=== PATIENT | female | born 1960 | race Caucasian/White ===

== ENCOUNTER → 2020-12-22 12:20 | Outpatient (CLI) | payer OTHER, MEDICAID, SELFPAY ==
--- NOTE | 2020-12-22 12:31 | DI.CT.S_ITS ---
PROCEDURE: CT LUMBAR SPINE WO CON INDICATIONS: Low back pain, unspecified TECHNIQUE: Noncontrast 3 mm thick sections acquired from the T12 level to the sacrum. Sagittal and coronal reformats were constructed. For radiation dose reduction, the following was used: automated exposure control. COMPARISON: [facility], MR, MR LUMBAR SPINE WITHOUT CONTRAST, 10/03/2020, 13:34. FINDINGS: Image quality: Excellent. Bones: No acute fracture. Multilevel degenerative endplate sclerosis and spurring. Diffuse facet arthropathy. Diffuse osteopenia. Severe diffuse narrowing of the lumbar disc spaces and multilevel chronic degenerative vacuum disc phenomenon. Grade 1 anterolisthesis of L4 on L5. T12-L1: Mild canal narrowing. No definite foraminal stenosis. L1-L2: Moderate to severe bony canal stenosis. Severe right foraminal stenosis with nerve root compression. Mild left foraminal narrowing.. L2-L3: Moderate bony canal stenosis. Mild left and moderate right foraminal narrowing. L3-L4: Mild canal narrowing. Mild left and no definite right bony foraminal stenosis. Borderline nerve root compression seen on the left. L4-L5: Severe bony canal stenosis. Moderate left and mild right bony foraminal narrowing. Borderline nerve root compression on the left. L5-S1: Minimal bony canal stenosis. Severe left bony foraminal narrowing with nerve root compression. Moderate right bony foraminal stenosis with borderline nerve root compression in the cephalocaudal dimension. Soft tissues: No retroperitoneal masses or hematomas. Visualized aorta is normal in caliber. Scattered atheromatous calcifications in the aorta. IMPRESSION: Multilevel lumbar spondylosis and facet arthropathy with grade 1 anterolisthesis of L4 on L5. Severe bony canal stenosis at L4-L5 and L1-L2. Numerous diffuse bilateral bony foraminal stenoses as detailed by spinal level. Dictated by: Martin Daugherty M.D. on 12/26/2020 at 8:16 Approved by: Martin Daugherty M.D. on 12/26/2020 at 8:38
== END ==
PROVIDERS: PCP Family Medicine; Referring Provider Orthopaedic Surgery Orthopaedic Surgery of the Spine; Visit Provider Orthopaedic Surgery Orthopaedic Surgery of the Spine
DX: M47.816 Spondylosis without myelopathy or radiculopathy, lumbar region (principal); M43.16 Spondylolisthesis, lumbar region; M48.061 Spinal stenosis, lumbar region without neurogenic claudication; M48.07 Spinal stenosis, lumbosacral region
CPT/HCPCS: 72131

== ENCOUNTER → 2021-01-02 15:22 | Outpatient (CLI) | payer OTHER, MEDICAID, SELFPAY | PROVIDERS: PCP Family Medicine; Referring Provider Orthopaedic Surgery Orthopaedic Surgery of the Spine; Visit Provider Orthopaedic Surgery Orthopaedic Surgery of the Spine | DX: Z01.818 Encounter for other preprocedural examination (principal) | CPT/HCPCS: 93005 ==

== ENCOUNTER → 2021-01-08 13:03 | Outpatient (CLI) | payer OTHER, MEDICAID, SELFPAY ==
[2021-01-08 14:55] LABS: COVID19 -Nasal RAPID Negative (Negative)
== END ==
PROVIDERS: PCP Family Medicine; Referring Provider Physician Assistant; Visit Provider Physician Assistant
DX: Z20.822 Contact with and (suspected) exposure to COVID-19 (principal)
CPT/HCPCS: 87635; C9803

== ENCOUNTER 2021-01-10 10:57 | Inpatient (IN) | payer OTHER, MEDICAID, SELFPAY ==
[2021-01-08 07:47] VITALS: BMI 34.1
[2021-01-10] VITALS (14 sets, daily range): BP systolic 114–170; BP diastolic 71–102; PULSE 84–107; RESP 10–18; TEMP 35.9–37.4; O2SAT 91–100; BMI 34.1
--- NOTE | 2021-01-10 | DI.RAD.S_ITS ---
PROCEDURE: XR LUMBAR SPINE 2-3V INDICATIONS: TLIF TECHNIQUE: 2 views of the lumbar spine were acquired. COMPARISON: [facility], CT, CT LUMBAR SPINE WO CON, 12/22/2020, 12:41. FINDINGS: 2 submitted intraoperative images demonstrates posterior/interbody fusion at the presumed L3-L4 and L4-L5 levels with hardware and disc spacers in expected position. There is trace retrolisthesis at the L3-L4 level and trace spondylolisthesis at the L4-L5 level. IMPRESSION: Limited exam demonstrating posterior/interbody fusion at the presumed L3-L4 and L4-L5 levels. Dictated by: Thor Nelson [facility] Interpreted: Steve West MD on 01/10/2021 at 17:09 Transcribed by: PAULETTE on 01/10/2021 at 17:10 Approved by: Steve West M.D. on 01/10/2021 at 19:36
[2021-01-10] MEDS: LACTATED RINGERS 1,000 ML 42 ML IV ×2 (11:54→14:53)
--- NOTE | 2021-01-10 12:14 | SUR.PREOP ---
Preop Dr Neville here and confirmed procedure with patient. Pt Discussed with Md pain now starting on RT side, but confirmed left side still worse. Dr Neville informed patient nicotine patch to be ordered for post op. Patient resting & Awaiting to speak w/rest of OR staff.
--- NOTE | 2021-01-10 12:33 | PM.PREOP ---
Pre-operative Note COVID-19 COVID-19 status: Negative Result date/Date tested (Pos, Neg/Pending): 01/08/21 Interval Note History & Physical reviewed/Exam performed by Physician: Yes Changes to H&P: No
[2021-01-10] MEDS: CEFAZOLIN 2 GM/20 ML SYRINGE IV ×2 (13:10→20:15)
[2021-01-10] MEDS: BUPIVACAINE LIPOSOME 266 MG/20 ML VIAL INJ (13:15)
--- NOTE | 2021-01-10 13:27 | SUR.OPER ---
Prone on spine table, head in foam head support, padded chest and pelvic supports, gel pad at knees, lower legs supported by pillows; nipples, genitalia and toes free of pressure, arms secured on foam padded arm boards at <90 degrees abduction. Tape over blanket at thigh secured to table.
[2021-01-10] MEDS: BUPIVACAINE 0.25% (PF) 30 ML, EPINEPHrine 0.3 MG INJ (13:30)
[2021-01-10] MEDS: ACETAMINOPHEN IV 1,000 MG/100 ML VIAL 400 MG IV (15:30)
--- NOTE | 2021-01-10 17:10 | PM.OP.1 ---
Operative Date/Time/Diagnoses Date of procedure: 01/10/21 Time of procedure: 13:00 Pre-op diagnosis: 1. L3-4, L4-5 spondylolisthesis 2. Lumbar spinal stenosis with neurogenic claudication Post-op diagnosis: same Procedure & Clinicians Procedure: 1. L3-4, L4-5 Postero-lateral and posterior interbody fusion 2. L3-4, L4-5 interbody cage placement. 3. L3-4, L4-5 decompressive laminectomy with bilateral facetecomies 4. L3-4, L4-5 Posterior segmental instrumentation 5. [place] of bone marrow from iliac crest 6. Utilization of microsurgical technique and operating microscope 7. Robotic navigation assisted surgery Same procedure as scheduled: Yes Indications: Patient has been having chronic back pain and worsening lumbar radiculopathy. Patient failed multiple conservative management with worsening pain weakness and numbness in her lower extremity. Patient has been having difficulty performing activity of daily living. After discussing risks benefits of treatment options, patient elected proceed with surgery. Surgeon: Huber Neville Sound Effects Supervisor: Viraj Rouse Click Yes if Unassisted: No Anesthesia Type: General Operative Notes Closure Type: primary Specimen(s): none sent Prosthetic devices, grafts, tissues, transplants, or devices: Globus CREO MIS screws, Rise cages Applied: catheter Estimated Blood Loss (mL): 150 Blood products transfused: none Procedure in detail: Patient was seen in the preoperative area. Risks and benefits of the surgery was discussed with the patient. Informed consent was obtained from the patient and placed in the chart. Surgical site was marked. Patient was taken to the operative room. General anesthesia was administered. Prophylactic antibiotic was given to the patient less than 30 min before the incision was made. Patient was placed into a prone position on the Alex table. Patient's back was then prepped and draped in the sterile fashion. Time-out was performed at this time. After patient was prepped and draped, patient's PSIS was palpated and marked bilaterally. Small 1 cm incision was made over the PSIS for placement of the reference probes. Two trocar was placed into the PSIS 1 on each side. The reference probe was attached to the trocar of the reference apparatus. At this time the C-arm imaging was used to confirm AP and lateral of L3, L4-L5 vertebrae and merged the C-arm imaging using the [employer] robotic navigation system with the CT of the lumbar spine. After successful merging was completed and confirmed, skin marker was used to anuja out the skin incision using the Dress Code robotic arm. Bilateral incision was made at this time. Pre templated trajectory was used and guided using the [employer] robotic navigation system for bilateral L3 L4, L5 pedicle screw placement. This was done by using the robotic arm to guide the high-speed bur to make a cortical entry point. Next a drill was placed also using the robotic arm and guided using the navigation system drilling partially through bilateral L3, L4, L5 pedicles. Next L3, L4, L5 pedicle screws it was pre templated and measured was placed onto the power driver recruiter and inserted into the pedicles bilaterally. After all 6 screws were placed C-arm imaging was taken of both AP and lateral to confirm the placement. Excellent placement of the screws were confirmed and a matched precisely with the pre planned screw placement using the navigation system. MARs retractor was inserted using [employer] guidence. Globus MARS retractors was placed inside the incision and docked onto the L3, L4 lamina. Using microsurgical technique and operating microscope, a L4, L5 laminectomy and L3-4, L4-5 facetectomy was performed using a [place] rongeur. Patient was found have severe lateral recess and neural foramen stenosis which was fully decompressed after the laminectomy facetectomy. More than 75% of the facets were removed during the process of decompression rendering L3-4, L4-5 level grossly unstable and required a fusion procedure at the same time. The disc space at L3-4, L4-5 was identified, and a total diskectomy was performed at L3-4, L4-5 level. The endplates were decorticated using a rasp and shaver. The total diskectomy and decortication was performed at L3-4, L4-5 level in order to to accomplish a L3-4, L4-5 fusion. The local bone from the laminectomy and facetectomy was saved for local bone grafting. After the total diskectomy and decortication was completed, Trifecta bone graft material was combined with local bone that was harvested earlier. At this time, a separate skin is incision was made over the iliac crest. A Jamshidi needle was inserted into the iliac crest through a separate skin incision. 5 cc of bone marrow aspiration was obtained through the separate skin incision using a Jamshidi needle from the iliac crest. The bone marrow aspiration was combined with local bone and the Trifecta bone grafting material. The bone grafting material was placed into the L3-4, L4-5 interbody space along with expandable cages. One cage each was inserted into the L3-4 L4-5 interbody space along with bone graft material. The cage was expanded to its maximum height using the torque limiting screwdriver. The disc preparation as well as the cage insertion were also performed under navigation guidance. After the cage was placed, AP and lateral C-arm imaging was taken to confirm placement of the cage and excellent position was confirmed. Globus MARS retractor was inserted and docked onto the L3-4, L4-5 posterolateral gutter on the right side. Using the power drill, posterior-lateral decortication was performed at L3-4, L4-5 level until bleeding cortical bone was identified. The remaining bone grafting material was placed into the L3-4, L4-5 posterior lateral gutter he order to accomplish posterolateral fusion at the L3-4, L4-5 level. At this time the tulips were attached to the L3, L4-L5 pedicle screw shanks. After measuring the length of the rods, they were inserted into the tulips of the pedicle screws and locked in place using locking caps and torque limiting screwdriver bilaterally. Total 6 caps and 2 titanium rods was used in order to complete the posterior instrumentation construct. After all the hardware was placed, and confirmed with AP and lateral C-arm imaging, the wound was then irrigated with sterile normal saline and packed with Ray-Jl gauze for 3 min to accomplish hemostasis. After the gauze was removed the deep fascia was closed with #1 Vicryl suture. The subcutaneous layer was closed with 2-0 Vicryl. The skin was closed with skin carolyn. Patient tolerated the procedure well. There were no complications. Neuro monitoring system was used to monitor patient's neurologic status throughout entire procedure. There was no disturbance of the neural monitoring signals throughout the case. Complications: none Post-operative Condition: stable Disposition: PACU Plan for aftercare: Admit to inpatient hospital
[2021-01-10] MEDS: fentaNYL 100 MCG/2 ML INJ IV ×2 (17:17→17:28)
[2021-01-10] MEDS: NICOTINE 14 PATCH 14 MG TOP (17:37)
[2021-01-10] MEDS: LORazepam 2 MG/ML INJ 0.5 MG IV (17:37)
[2021-01-10] MEDS: ONDANSETRON 4 MG/2 ML INJ IV (17:45)
--- NOTE | 2021-01-10 18:34 | SUR.PHASEI ---
received from spine surgery very squirrely and moving about in bed in pain. Fentanyl given X2 for a total of 100 mcg. Didn't work well. Dr Wells here and ordered ativan 0.5 mg which was given and a nicotine patch which was placed. Patient relaxed soon after. On 3 kiters of due to pulling it off over and over and desatting to the 80s. Pulled up in bed to give her oral solutions but claimed she could tolerate sitting up due to vertigo. Gave report to acute care and transferred her there
[2021-01-10] MEDS: SODIUM CHLORIDE 0.9% 1,000 ML 100 ML IV (18:44)
[2021-01-10] MEDS: OXYCODONE IR 5 MG TABLET 10 MG PO (18:51)
[2021-01-10] MEDS: ACETAMINOPHEN 325 MG TABLET 650 MG PO (18:51)
[2021-01-10] MEDS: hydrOXYzine pamoate 25 MG CAPSULE PO (18:52)
[2021-01-10] MEDS: HYDROMORPHONE 0.5 MG INJ IV ×2 (20:12→23:08)
[2021-01-10] MEDS: buPROPion SR 150 MG TAB 300 MG PO (20:13)
[2021-01-10] MEDS: DOCUSATE 100 MG CAPSULE PO (20:13)
[2021-01-10] MEDS: GABAPENTIN 300 MG CAPSULE 600 MG PO (20:14)
[2021-01-10] MEDS: FERROUS SULFATE 325 MG TABLET PO (20:14)
[2021-01-10] MEDS: SENNOSIDES 8.6 MG TABLET 17.2 MG PO (20:14)
[2021-01-10] MEDS: QUETIAPINE 100 MG TABLET 50 MG PO (20:14)
[2021-01-11 00:50] VITALS: BP 133/79; PULSE 98; RESP 18; TEMP 36.3; O2SAT 98
[2021-01-11] MEDS: HYDROMORPHONE 0.5 MG INJ IV ×7 (01:35→22:07)
[2021-01-11] MEDS: hydrOXYzine pamoate 25 MG CAPSULE PO ×5 (01:35→22:10)
[2021-01-11 05:00] VITALS: BP 117/78; PULSE 98; RESP 18; TEMP 36.9; O2SAT 98
[2021-01-11 06:19] LABS: Hematocrit 34.3 % (36-46); Hemoglobin 11.8 g/dL (12.0-16.0)
[2021-01-11] MEDS: CEFAZOLIN 2 GM/20 ML SYRINGE IV (06:24)
--- NOTE | 2021-01-11 07:29 | PM.PNPO.1 ---
Subjective Subjective Date Patient Seen: 01/11/21 Time Patient Seen: 07:29 Interval history: The patient is complaining of moderate low back pain. She notes IV Dilaudid is helping significantly. She denies any new numbness or tingling, she has baseline neuropathy. No fevers, chills, night sweats. Exam Vital Signs (past 8 hours): - 01/11/21 00:50 01/11/21 05:00 Temperature 97.4 F L 98.4 F Pulse Rate 98 H 98 H Respiratory Rate 18 18 Blood Pressure 133/79 117/78 Pulse Oximetry 98 98 Oxygen Delivery Method Nasal Cannula Oxygen Flow Rate 0 Narrative Exam Narrative: Pleasant 60-year-old female, resting comfortably in bed, no acute distress. Dressing is clean, dry, intact. Bilateral lower extremity: Motor functions are grossly intact, sensation is grossly intact to light touch, calves are soft and nontender to palpation. Objective Labs Result Diagrams: 01/11/21 05:47 Labs: Laboratory Results - last 24 hr 01/11/21 05:47 Hgb 11.8 L Hct 34.3 L PFSH Medical History Arthritis Diverticulosis Easy bruisability Neuropathy Pre-diabetes Sciatica Spinal stenosis Stroke (2016) Tubal Surgical History History of bilateral tubal ligation History of carpal tunnel surgery of right wrist Hx of tonsillectomy Previous section Social History household members: none Smoking Status: Current every day smoker alcohol intake: current Assessment & Plan Post-op Postoperative Procedures: Procedures Operation Date: 01/10/21 12:00 Actual Procedure Side Surgeon p L3-4, L4-5 TLIF - Robot Not Applicable Huber Neville MD Postoperative day: 1 Postoperative status narrative: Stable status post L3-4, L4-5 TLIF Postoperative plan narrative: -mobilize with PT. Limit bending, lifting, twisting. Weightbearing as tolerated front wheel walker -encouraged more regular Oxy p.o.. If this is not helping, we can change to oral Dilaudid. -disposition likely home tomorrow once cleared by PT and pain is more manageable.
[2021-01-11 07:30] VITALS: BP 102/68; PULSE 96; RESP 18; TEMP 37.2; O2SAT 96
[2021-01-11] MEDS: MAGNESIUM HYDROXIDE 30 ML UDC PO (07:50)
[2021-01-11] MEDS: OXYCODONE IR 5 MG TABLET 10 MG PO ×5 (07:50→19:46)
[2021-01-11] MEDS: DOCUSATE 100 MG CAPSULE PO (07:50)
[2021-01-11] MEDS: buPROPion SR 150 MG TAB 300 MG PO ×2 (07:50→22:09)
[2021-01-11] MEDS: FERROUS SULFATE 325 MG TABLET PO (07:51)
[2021-01-11] MEDS: GABAPENTIN 300 MG CAPSULE 600 MG PO ×2 (07:51→19:45)
[2021-01-11] MEDS: NICOTINE 14 PATCH 14 MG TOP (07:51)
[2021-01-11] MEDS: LORATADINE 10 MG TABLET PO (08:03)
[2021-01-11] MEDS: FISH OIL 1,000 MG CAPSULE 1000 MG PO (08:03)
--- NOTE | 2021-01-11 09:10 | PT.IIE ---
Current Diagnoses Spondylolisthesis, lumbar region (01/10/21) Spinal stenosis, lumbar region without neurogenic claudication (01/10/21) Surgery Performed Operation Date: 01/10/21 12:00 Actual Procedures p L3-4, L4-5 TLIF - Robot(Not Applicable) - Huber Neville MD Medical History (Last Reviewed 01/11/21 @ 07:30 by Nalini Curry PA-C) Arthritis Diverticulosis Easy bruisability Neuropathy Pre-diabetes Sciatica Spinal stenosis Stroke (2016) Tubal Physical Therapy Inpatient Evaluation/Re-Eval M1 PT/OT-IP Prior Functional Status Start: 01/11/21 10:58 Freq: NEEDED Status: Active Protocol: Document 01/11/21 09:10 AB (Rec: 01/11/21 11:08 AB [email or web address]) Medical Review Prior Functional Status Medical History Reviewed Yes Mobility and Gait able to make needs known Social History Household Members none Living Arrangements Apartment/Condo Number of Floors (Floors) One Floor Number of Stairs To Enter/Railing? 1 step to the curb to get into the house Home Environment Standard Height Toilet,Tub/ Shower Home Equipment Grab Bars Near Toilet,Grab Bars In Shower Additional Social History Comment pt has a 3WW pt stated that her friend will stay with her for a few days to assist her but will not be able to provide physical manual assistance for her M2 PT-IP Current Condition Start: 01/11/21 10:58 Freq: NEEDED Status: Active Protocol: Document 01/11/21 09:10 AB (Rec: 01/11/21 11:08 AB [email or web address]) Physical Therapy Current Condition Current Condition Evaluation Date 01/11/21 Treatment Diagnosis s/p L3-4, L4-5 TLIF; difficulty in walking Onset Date 01/10/21 M3 PT-IP Subjective Start: 01/11/21 10:58 Freq: NEEDED Status: Active Protocol: Document 01/11/21 09:10 AB (Rec: 01/11/21 11:08 AB [email or web address]) Subjective Physical Therapy Visit Type Type Initial Evaluation Visit Start Time 09:10 Visit Stop Time 09:55 Total Visit Minutes 45 Number of OFFICE SUPERVISOR Visits 0 Physical Therapy Visit Comments Patient Comments agreeable to do PT Therapy Pain Assessment Pain When Pain Assessed At Rest Pain Present Pain Present Pain Reported Location Back Intensity 6 Scale Used increases to 10/10 during mobility Pain Behaviors Crying,Facial Grimacing, Guarding,Wincing Pain Management Techniques Apply Cold,Distraction, Modification of Treatment,Re- positioning,Timing of Activity with Medications M4 PT-IP Mobility and Gait Start: 01/11/21 10:58 Freq: NEEDED Status: Active Protocol: Document 01/11/21 09:10 AB (Rec: 01/11/21 11:08 AB [email or web address]) PT-Bed Mobility Assessment Rolling Type of Rolling Log Rolling Level of Assist Maximal Assistance Supine to Sit Supine to Sit Maximum Assistance Scooting Scooting to Edge of Bed Maximum Assistance PT-Transfer Assessment Sit to and From Stand Sit to and from Stand Maximum Assistance,2 Person Assistance,Use of Upper Extremities Equipment Transfer Assistive Device Gait Belt,Front Wheeled Walker Orthotic/Prosthetic Devices or Brace: No Transfers Transfer Destination Chair Transfer Technique Stand Step Pivot Transfer Ability Level of Assist Maximum Assistance,2 Person Assistance,Use of Upper Extremities Comments Mobility Comments reviewed back precautions and log roll bed mobility with pt. pt completed supine to sit max A and max cues. required increase rest breaks in between tasks with c/o increase pain R>L side of low back. able to sit on EOB min A. completed sit to stand x 2 attempts max A x 2 and max cues and step transfer to chair max A x 2 and max cues using FWW. c/o increase back pain and R buttocks 10/10 pain wiht difficulty descending on chair to sit and required 4 attempts and max A. positioned pt on chair. call light and table placed within reach. informed pt regarding SNF rehab recommendation at this time and agreed. pt stated that her friend will not be able to lift her/assist her but can only hand her things. Gait Assessment Comments Gait Comments able to take steps during transfer using FWW PT-Balance Assessment Sitting Balance and Reactions Static Sitting Balance Ability Fair Dynamic Sitting Balance Ability Fair Standing Balance and Reactions Static Standing Balance Ability Poor Dynamic Standing Balance Ability Poor Device Used FWW M5 PT-IP Objective Assessments Start: 01/11/21 10:58 Freq: NEEDED Status: Active Protocol: Document 01/11/21 09:10 AB (Rec: 01/11/21 11:08 AB [email or web address]) Orientation Orientation/Cognition Level of Alertness Alert Orientation Name,Place,Situation Language Function Ability No Deficits Noted Safety Awareness Decreased Safety Awareness Memory Description Short Term Impaired Gross Range of Motion Lower Extremity ROM Assessment Within Functional Limits Strength Comments Strength Comments LLE: 4-/5 RLE 3+/5 Sensation Assessment Sensation Gross Sensation Right LE Impaired,Left LE Impaired Sensation Description Numbness,Tingling Comments Sensation Comments chronic B feet numbness/ tingling; pt stated that she has neuropathy Muscle Tone Muscle Tone WNL Yes M6 PT-IP Treatment Start: 01/11/21 10:58 Freq: NEEDED Status: Active Protocol: Document 01/11/21 09:10 AB (Rec: 01/11/21 11:08 AB [email or web address]) Physical Therapy Treatment Education Education Provided Precautions,Weight Bearing Status,Post-Op Packet,Safety M7 PT-IP Assessment and Plan Start: 01/11/21 10:58 Freq: NEEDED Status: Active Protocol: Document 01/11/21 09:10 AB (Rec: 01/11/21 11:08 AB [email or web address]) PT Summary Assessment and Plan Potential Rehabilitation Potential Good Status of Condition at Evaluation Evolving Summary Impairments Pain,ROM,Strength,Balance, Coordination,Sensation,Tone, Cognition,Bed Mobility, Transfers,Gait,Activity Tolerance Assessment Summary pt requiring max A x 2 for transfers using fWW and c/o increase back pain affecting mobility. unable to ambulate at this time but able to take a few steps during transfers. Pt will require SNF rehab to improve strength and functional mobility. Goals Bed Mobility Goal Standby Assistance Transfer Goal Standby Assistance,Front Wheeled Walker Gait Goal Standby Assistance,Front Wheel Walker Gait Distance 150 Other Goals up/down 1 step using FWW SBA Days to Meet Goals 10 Frequency of Treatment Frequency Of Treatment Twice a Day Treatment Plan Physical Therapy Treatment Plan Bed Mobility Training,Transfer Training,Gait Training, Therapeutic Exercise,Balance Retraining,Post Op Education, Discharge Planning,Hot or Cold Pack,Neuromuscular Re-ed, Coordination Retraining,Manual Therapy Precautions Lumbar Precautions Log Roll,No Twisting,Limit Bending,Lifting Restriction of 10 lbs,Gait Belt above Incisional Area Recommendations To Nursing Amount of Assist Needed 2 Person Assist Discharge Recommendations PT Discharge Recommendations SNF Rehab Equipment Needed for Home Before FWW if pt goes home Discharge Transportation Needs at Discharge Wheelchair/Cabulance
--- NOTE | 2021-01-11 10:58 | OT.IP.EVAL ---
Current Diagnoses Spondylolisthesis, lumbar region (01/10/21) Spinal stenosis, lumbar region without neurogenic claudication (01/10/21) Surgery Performed Operation Date: 01/10/21 12:00 Actual Procedures p L3-4, L4-5 TLIF - Robot(Not Applicable) - Huber Neville MD Past Medical History (Last Reviewed 01/11/21 @ 07:30 by Nalini Curry PA-C) Arthritis Diverticulosis Easy bruisability History of bilateral tubal ligation History of carpal tunnel surgery of right wrist Hx of tonsillectomy Neuropathy Pre-diabetes Previous section Sciatica Spinal stenosis Stroke (2016) Tubal Surgical History (Last Reviewed 01/11/21 @ 07:30 by Nalini Curry PA-C) History of bilateral tubal ligation History of carpal tunnel surgery of right wrist Hx of tonsillectomy Previous section Occupational Therapy Inpatient Evaluation/Re-Eval M1 PT/OT-IP Prior Functional Status Start: 01/11/21 10:58 Freq: NEEDED Status: Active Protocol: Document 01/11/21 11:05 [facility] (Rec: 01/11/21 11:22 [facility] [id number]) Medical Review Prior Functional Status Communication Independent. Activities of Daily Living and IADL's Pt states needing increased time to do all her ADl and IADl needs. Social History Household Members none Living Arrangements Apartment/Condo Number of Floors (Floors) One Floor Number of Stairs To Enter/Railing? No steps to get into her apartment. Pt has a curb that she has to step over to get to her place from the street. Home Environment Standard Height Toilet,Tub/ Shower Home Equipment Straight Cane,Cook Cashier Food Prep Additional Social History Comment Pt has a 3ww and has just ordered a SPC. Pt also has a tub safety rail on the side of the tub. M2 OT-IP Current Condition Start: 01/11/21 10:59 Freq: Status: Active Protocol: Document 01/11/21 11:05 [facility] (Rec: 01/11/21 11:22 [facility] [id number]) Occupational Therapy Current Condition Current Condition Evaluation Date 01/11/21 Treatment Diagnosis S/p L3-4, L4-5 TLIF Diagnosis Onset Date 01/10/21 M3 OT- IP Subjective and Pain Start: 01/11/21 10:59 Freq: Status: Active Protocol: Document 01/11/21 11:05 [facility] (Rec: 01/11/21 11:22 [facility] [id number]) OT- Subjective Occupational Therapy Visit Type Type Initial Evaluation Visit Start Time 10:20 Visit Stop Time 10:58 Total Visit Minutes 38 Occupational Therapy Visit Comments Patient Comments Pt wanting to get back to the bed. Patient/Caregiver Goals Pt realizing that she will not be able to care for herself at home. OT Pain Assessment Pain When Pain Assessed During Mobility Pain Present Pain Present Pain Reported Location Back Intensity 10 Scale Used Numeric (0 - 10) M4 OT- IP ADL's Start: 01/11/21 10:59 Freq: Status: Active Protocol: Document 01/11/21 11:05 [facility] (Rec: 01/11/21 11:22 [facility] [id number]) OT [id number] Comments OT Self-Feeding Comments Not at meal time. OT ADL-Grooming Comments OT Grooming Comments Pt not want to do at this time . OT ADL-Dressing General Eval Lower Body Dressing Ability Maximum Assistance Comments OT Dressing Comments Able to educate pt of use of LB dressing equipment and pt able to practice use of customer professional and sock aid. OT ADL-Toileting General Evaluation Toileting Ability Total Assistance Comments OT Toileting Comments Noel in place. OT ADL-Bathing Comments OT Bathing Comments Sponge bath more appropriate at this time. M5 OT- IP IADL's Start: 01/11/21 10:59 Freq: Status: Active Protocol: Document 01/11/21 11:05 [facility] (Rec: 01/11/21 11:22 [facility] [id number]) OT-Instrumental Activities of Daily Living Home Safety Awareness Awareness of Need for Assistance at Home Good Awareness Ability to Problem Solve Emergency Able to Problem Solve Situations Medication Management Medication Management Comments Prior per pt able to do on her own. Meal Preparation Meal Preparation Comments Now pt will need assist due to decreased mobility needs. Cloth Measurer Cloth Measurer Comments Now pt will need assist due to decreased mobility needs. Pt states has a friend to taking care of her dog. Talked to pt about modifying things at home so able to feed her dog or have someone to assist her. M6 OT- IP Functional Cognition Start: 01/11/21 10:59 Freq: Status: Active Protocol: Document 01/11/21 11:05 [facility] (Rec: 01/11/21 11:22 [facility] [id number]) Cognitive Factors Limiting Selfcare Function Cognitive Ability Level of Alertness Alert Patient Orientation Name,Place,Situation Attention Span Ability Capable of Focused Attention, Capable of Sustained Attention Ability to Follow Commands Able to Follow One Step Commands Cognitive Comments Cognitive Assessment Comments Pt able to follow commands and follow her back precautions. OT- Vision and Hearing OT- Hearing Assessment OT- Hearing Assessment WFL OT- Vision Assessment Visual Acuity WFL M7 OT- IP Mobility and Balance Start: 01/11/21 10:59 Freq: Status: Active Protocol: Document 01/11/21 11:05 [facility] (Rec: 01/11/21 11:22 [facility] [id number]) OT- Bed Mobility Assessment Sit to Supine Sit to Supine Assist Total Assistance,2 Person Assistance Scooting Scooting to Edge of Bed Maximum Assistance,1 Person Assistance OT-Transfer Assessment Sit to and From Stand Sit to and from Stand Maximum Assistance,2 Person Assistance Transfers Transfer Ability Maximum Assistance,2 Person Assistance Technique Transfer Destination Bed,Chair Transfer Technique Stand Step Pivot Devices Transfer Assistive Devices Gait Belt,Front Wheeled Walker Comments Mobility Comments Pt needing heavy assist to use green pad to assist pt to scoot forwards in the recliner and then needing MAX A x2 to stand and assist to guide FWW and for her balance. OT- Gait Assessment Comments Gait Ability Comments Transfer only at this time. OT- Balance Assessment Sitting Balance and Reactions Static Sitting Balance Ability Fair Dynamic Sitting Balance Ability Fair Standing Balance and Reactions Static Standing Balance Ability Poor Dynamic Standing Balance Ability Poor M9 OT- IP Assessment and Plan Start: 01/11/21 10:59 Freq: Status: Active Protocol: Document 01/11/21 11:05 [facility] (Rec: 01/11/21 11:22 [facility] [id number]) OT Summary Assessment and Plan Potential Rehabilitation Potential Good Analytic Complexity at Evaluation Low Summary OT Impairments Pain,Balance,Functional Mobility,Dressing,Toileting, Bathing,Toilet Transfers, Shower Transfers,Activity Tolerance Progress Towards Goals Slow Progress due to Pain Assessment Summary Pt low complexity and main barrier are pain and now needing extensive assist x2 for bed mobility,transfer, and assist for ADl's. Pt lives on her own and currently would not be able to care for herself at this time and would greatly benefit from skilled rehab. Pt is very motivated to get better. Goals Grooming Goal Independent Dressing Goal Independent Toileting Goal Independent Bathing Goal Independent Toilet Transfer Goal Independent Shower Transfer Goal Independent Patient/Caregiver Education Goal Demonstrate Post-Op Precautions Days to Meet Goals 25 Frequency of Treatment Frequency Of Treatment Once a Day Treatment Plan OT Treatment Plan ADL Training,Functional Cognition Training,Functional Mobility,Patient/Family Education,Discharge Planning Other Treatment Recommendations and Next Stand at the sink with Treatment Focus recliner behind her to do grooming needs. Discharge Recommendations OT Discharge Recommendations SNF Rehab Home Equipment Needs Tub bench, FWW Transportation Needs at Discharge Wheelchair/Cabulance
[2021-01-11 12:15] VITALS: BP 106/72; PULSE 95; RESP 18; TEMP 37.1; O2SAT 95
[2021-01-11] MEDS: GABAPENTIN 300 MG CAPSULE PO (12:23)
--- NOTE | 2021-01-11 13:40 | PT-IP ANOTE ---
Attempted to see pt at 13:40, pt refused treatment stating she is in too much pain from moving earlier.
--- NOTE | 2021-01-11 16:04 | CM.DANOTE ---
Addendum entered by Patricia Escoto R.N. 01/11/21 16:38: CM spoke with Natalie at [facility] who is contracted with [facility] and stated she will review clinicals- Cm faxed clinicals to her fax # [phone]. PIEDAD will call and check in with both [facility] and [facility] tomorrow to check on possible SNF placement options. Patricia escoto Rn Case Manger Original Note: DC Planning Assessment Patient is 60yo F recovering after a multiple level spinal surgery by Dr. Neville. CIVIL GEOTECHNICAL ENGINEER met with patient at [facility]. Patient is independent at baseline, has a walker available for personal use as needed, lives alone but has friends as support. Patient has no stairs but a curb she will need to manuever to get to her entry. Patient drives. Patient has no SNF or HH history. OT eval recommending discharge to SNF/Rehab with DME needs of Tub bench and FWW. PT eval declined today by patient due to pain level. Insurance: [employer] Medicare Advantage and Medicaid Spenddown DC Plan: Patient is anticipated to discharge to SNF with preference of patient being [facility] in [place] with [facility] as 2nd option. PASSR needed. James contacted re bed availability and auth. Clinicals sent. Rickey Rogel [facility] Discharge Planning/Care Management CM Discharge Assessment Start: 01/11/21 15:59 Freq: Status: Active Protocol: Document 01/11/21 15:59 HS (Rec: 01/11/21 16:04 HS [id number]) Discharge Planning Assessment Assigned Licensed Psychiatric Technician Rickey Rogel [facility] DPOA/Assigned Designee Name Nadja Dang (friend), Velma Burch (mother) Contact Information [phone], Advance Directives? No History Provided By Patient Has Patient been admitted in last 30 No days? Prior Living Arrangements Apartment/Condo Household Members none Type of transporation used prior to Drives own vehicle admit Independent with ADL's Yes Is patient alert and oriented? Yes Caregiver for Another No Patient/Family Preference Retirement Facility Comment [facility] in [place] or [facility] Barriers to Discharge Yes Comment [employer] auth and SNF bed avail. Discharge Plan Retirement Facility Transportation Arrangement TBD based on facility Referrals Initiated Retirement If patient plan is SNF: Has PASSR been No completed? Medicare Choice List Provided Yes SNF/HH Preference [facility] or [facility] Has Agency SNF been contacted No Whiteboard Updated in Patient Room with Yes name and ext. # of Licensed Psychiatric Technician Review Status In Process Next Review Type Continued Stay Review Pre-Anesthesia Assessment Start: 01/01/21 12:42 Freq: Status: Complete Protocol: Document 01/08/21 07:47 CAB (Rec: 01/01/21 13:43 CAB [id number]) Pre-Anesthesia Assessment PAC Comment Pt would like a nicotine patch while in-house Preferred Name [facility] Patient Information Reviewed Via Phone Assessment Assessment Completed With Patient Comment Labs @ [facility], EKG @ , COVID screen @ 01/08/21 Primary Care Provider Juventino Coe Seen Specialist in Last 12 Months Yes Specialist Seen Orthopedist Primary Language Yakut Washery Engineer Required No Height 170.18 cm Weight 98.883 kg Body Mass Index (BMI) 34.1 Hearing Ability Normal Visual Assist Glasses Dentition Type Full- Upper Comment Missing lower denture. Pt denies any memory issues Hx Anesthesia Reactions Yes: Nausea s/p surgery, shaking Hx Family Anesthesia Reaction No Hx Malignant Hyperthermia No Hx Blood Transfusions No Anesthesia Review Requested No alcohol intake current alcohol intake frequency a few times a week Smoking Status Current every day smoker Tobacco type cigarettes Smoking packs per day 1 how long ago did patient quit smoking Smoking since childhood Substance Use Type does not use Pain Present Pain Reported Musculoskeletal Symptoms Back Pain,Limited Range of Motion,Muscle Weakness, Radiating Pain into Limb History of Falling (Recent or History of No ) Patient is completely paralyzed or No completely immobile Mental Status Oriented to own ability Is patient on oxygen? No Does patient have RODRIGUEZ/SOB No Hx Sleep Apnea No Currently Taking a Beta Tano No Hx Chest Pain No Hx SOB No Hx Syncope or Dizziness Yes: Occasional dizziness Anti-Coagulant Therapy Yes: ASA 81mg hx stroke 2016- Pt will check w/PCP if needed to hold Has a Power Saw Mechanic No Cardiac Testing No Hx Pacemaker/ICD No Pacemaker Rep Required? No Cardiac Clearance Received Not Applicable Diet Type At Home Regular dysphagia No Urinary Catheter Present No Hx Urinary Self Catheterization No Diabetes No: Pre-diabetes HgbA1C 5.6 Date 12/19/20 Patient No Lactating No Hx Drug Resistant Organism No Presence of External or Internal Medical No Devices Have you had any close contact with Yes someone diagnosed with COVID-19? Received a COVID vaccine? Yes: +Booster Received all doses? Yes Marital Status Single Lives With none Prior Living Arrangements Apartment/Condo Support System Friend(s) Does the Patient Have Assistance After Yes: Friend will stay w/pt at Surgery DC to assist with care Patient Discharge Plan Description Return Home Comment Pt advised 2 day length of stay per surgeon Feels Safe in Current Environment Yes Been Physically Hurt or Threatened By a No Person in Current Environment Do you have thoughts of harming yourself None or others? Are you currently considering suicide? No Do you have a plan to hurt yourself or No Plan others? Do You Have Any Spiritual Beliefs That No May Affect Your HC Choices? Do You Have Any Cultural Practices That No May Affect Your HC Choices? Who Can We Speak to About Patient's Care Family, friends Identifying Code for Release of Patient Declines to issue Information Health Care Proxy/Next of Kin [facility] [place] Health Care Proxy Emergency Contact Name Velma ([facility] [place]) Emergency Contact Advance Directives? No Power of Proposal Writer No PAC Instructions Diabetes instructions,Durable medical equipment,Medications to take/avoid,Nasal antibiotic ,No ETOH/petroleum product on skin DOS,NPO,Post-op transportation,Pre-surgical wash,Sturdy shoes/comfortable clothes,Do not bring valuables and remove jewelry
[2021-01-11] MEDS: METFORMIN HCL 500 MG TABLET PO (16:32)
[2021-01-11] MEDS: SODIUM CHLORIDE 0.9% FLUSH 10 ML IV (18:16)
[2021-01-11] MEDS: ACETAMINOPHEN 325 MG TABLET 650 MG PO (19:43)
[2021-01-11] MEDS: QUETIAPINE 100 MG TABLET 50 MG PO (19:46)
[2021-01-11 20:00] VITALS: BP 98/55; PULSE 100; RESP 18; O2SAT 93
[2021-01-12] VITALS (7 sets, daily range): BP systolic 112–141; BP diastolic 70–77; PULSE 90–107; RESP 14–24; TEMP 35.6–37.7; O2SAT 92–100
[2021-01-12] MEDS: HYDROMORPHONE 0.5 MG INJ IV ×2 (00:03→06:06)
[2021-01-12] MEDS: ACETAMINOPHEN 325 MG TABLET 650 MG PO ×2 (03:23→14:51)
[2021-01-12] MEDS: hydrOXYzine pamoate 25 MG CAPSULE PO ×6 (03:24→22:05)
[2021-01-12] MEDS: OXYCODONE IR 5 MG TABLET 10 MG PO ×2 (03:24→07:36)
--- NOTE | 2021-01-12 09:28 | PM.PNPO.1 ---
Subjective Subjective Date Patient Seen: 01/12/21 Time Patient Seen: 09:28 Interval history: Patient's pain is 7/10. Denies fever or chills. No nausea or vomiting. Patient states she was going to have a girlfriend assist her at home however at this point with her mobility she doubts that her girlfriend would be able to assist her. Exam Vital Signs (past 8 hours): - 01/12/21 06:00 Temperature 98.7 F Pulse Rate 90 Respiratory Rate 14 Blood Pressure 112/74 Pulse Oximetry 95 Oxygen Delivery Method Nasal Cannula Oxygen Flow Rate 0 Narrative Exam Narrative: BMI 34 6-year-old female resting comfortably in bed in no apparent distress. Noel catheter in place. Dressing Clean, dry, intact.. Motor functions intact bilateral lower extremities. Sensation grossly intact to light touch bilateral lower extremities. Objective Labs Result Diagrams: 01/11/21 05:47 [facility] Medical History Arthritis Diverticulosis Easy bruisability Neuropathy Pre-diabetes Sciatica Spinal stenosis Stroke (2016) Tubal Surgical History History of bilateral tubal ligation History of carpal tunnel surgery of right wrist Hx of tonsillectomy Previous section Social History household members: none Smoking Status: Current every day smoker alcohol intake: current Assessment & Plan Post-op Postoperative Procedures: Procedures Operation Date: 01/10/21 12:00 Actual Procedure Side Surgeon p L3-4, L4-5 TLIF - Robot Not Applicable Huber Neville MD Postoperative day: 2 Postoperative status narrative: Patient progressing slower than expected, patient refused PT yesterday stating she is in too much pain from moving earlier Postoperative plan narrative: Mobilize with physical therapy, limit bending, lifting, twisting, patient was 2 person assist yesterday Multimodal pain management Discontinue Noel catheter Disposition likely assisted facility tomorrow
[2021-01-12] MEDS: MAGNESIUM HYDROXIDE 30 ML UDC PO (09:30)
[2021-01-12] MEDS: NICOTINE 14 PATCH 14 MG TOP (09:33)
[2021-01-12] MEDS: LORATADINE 10 MG TABLET PO (09:34)
[2021-01-12] MEDS: buPROPion SR 150 MG TAB 300 MG PO ×2 (09:34→20:00)
[2021-01-12] MEDS: GABAPENTIN 300 MG CAPSULE 600 MG PO ×2 (09:34→20:00)
[2021-01-12] MEDS: FISH OIL 1,000 MG CAPSULE 1000 MG PO (09:34)
[2021-01-12] MEDS: FERROUS SULFATE 325 MG TABLET PO ×2 (09:35→20:01)
[2021-01-12] MEDS: DOCUSATE 100 MG CAPSULE PO ×2 (09:35→20:00)
[2021-01-12] MEDS: SODIUM CHLORIDE 0.9% FLUSH 10 ML IV ×2 (09:37→20:01)
[2021-01-12] MEDS: HYDROMORPHONE 2 MG TABLET PO ×5 (09:56→23:05)
--- NOTE | 2021-01-12 10:08 | PT.IPTN ---
Current Diagnoses Spondylolisthesis, lumbar region (01/11/21) Spinal stenosis, lumbar region without neurogenic claudication (01/11/21) Surgery Performed Operation Date: 01/10/21 12:00 Actual Procedures p L3-4, L4-5 TLIF - Robot(Not Applicable) - Huber Neville MD Physical Therapy Treatment Note M2 PT-IP Current Condition Start: 01/11/21 10:58 Freq: NEEDED Status: Active Protocol: Document 01/11/21 09:10 AB (Rec: 01/11/21 11:08 AB [id number]) Physical Therapy Current Condition Current Condition Evaluation Date 01/11/21 Treatment Diagnosis s/p L3-4, L4-5 TLIF; difficulty in walking Onset Date 01/10/21 M3 PT-IP Subjective Start: 01/11/21 10:58 Freq: NEEDED Status: Active Protocol: Document 01/12/21 09:43 KS (Rec: 01/12/21 10:47 KS [id number]) Subjective Physical Therapy Visit Type Type Treatment Note Visit Start Time 09:43 Visit Stop Time 10:08 Total Visit Minutes 25 Number of INCIDENT COORDINATOR Visits 1 Physical Therapy Visit Comments Patient Comments agreeable to do PT Therapy Pain Assessment Pain When Pain Assessed During Mobility Pain Present Pain Present Pain Reported Location Back Scale Used not quantified Description Burning Pain Behaviors Calling Out,Facial Grimacing, Guarding,Moaning,Restlessness, Wincing Pain Management Techniques Distraction,Re-positioning, Timing of Activity with Medications M4 PT-IP Mobility and Gait Start: 01/11/21 10:58 Freq: NEEDED Status: Active Protocol: Document 01/12/21 09:43 KS (Rec: 01/12/21 10:47 KS [id number]) PT-Bed Mobility Assessment Rolling Type of Rolling Log Rolling Level of Assist Minimal Assistance Supine to Sit Supine to Sit Maximum Assistance,1 Person Assistance,Head of Bed Elevated,Bedrails Scooting Scooting to Edge of Bed Maximum Assistance PT-Transfer Assessment Sit to and From Stand Sit to and from Stand Minimal Assistance,1 Person Assistance,Use of Upper Extremities Equipment Transfer Assistive Device Gait Belt,Front Wheeled Walker Orthotic/Prosthetic Devices or Brace: No Transfers Transfer Destination Chair Transfer Technique Stand Step Pivot Transfer Ability Level of Assist Moderate Assistance,Maximum Assistance,2 Person Assistance ,Use of Upper Extremities Comments Mobility Comments Pt in bed upon arrival from therapy and able to recall 3/3 spinal precautions w/ cues for lifting precaution. Min A for logroll to R, Max A for sidelying<>sit w/ use of bed rails. Pt reporting high amount of pain/caling out during all mobility. Max A and cues for scooting EOB. Pt able to maintain seated balance EOB SBA to CGA ~2 min. Min A for sit<>Stand w/ FWW. Pt then performed stand step pivot Min A x2 w/ cues and FWW management. Pt refused further ambulation and marching in place, able to slightly weight shift but c/o increased pain w/ shift to L. Mod A for stand<>sit for slow descent, cues for hand placement. Encouraged pt to perform ankle pumps and glute sets while in chair to promote blood flow and strenghtening. Pt left in chair w/ all needs in reach. Gait Assessment Gait Gait Assistance Required: Minimum Assistance,2 Person Assist Distance (Feet) 3 Assistive Devices Assistive Device Gait Belt,Front Wheeled Walker Orthotic/Prosthetic Devices or Brace: No Gait Deviations General Gait Pattern Decreased Stride Length, Decreased Feet Clearance Factors Limiting Gait Function Factors Limiting Gait Function Decreased Sensation,Difficulty Following Directions,Pain Comments Gait Comments able to take steps during transfer using FWW PT-Balance Assessment Sitting Balance and Reactions Static Sitting Balance Ability Good Dynamic Sitting Balance Ability Fair Standing Balance and Reactions Static Standing Balance Ability Fair Dynamic Standing Balance Ability Poor Device Used FWW M5 PT-IP Objective Assessments Start: 01/11/21 10:58 Freq: NEEDED Status: Active Protocol: Document 01/11/21 09:10 AB (Rec: 01/11/21 11:08 AB [id number]) Orientation Orientation/Cognition Level of Alertness Alert Orientation Name,Place,Situation Language Function Ability No Deficits Noted Safety Awareness Decreased Safety Awareness Memory Description Short Term Impaired Gross Range of Motion Lower Extremity ROM Assessment Within Functional Limits Strength Comments Strength Comments LLE: 4-/5 RLE 3+/5 Sensation Assessment Sensation Gross Sensation Right LE Impaired,Left LE Impaired Sensation Description Numbness,Tingling Comments Sensation Comments chronic B feet numbness/ tingling; pt stated that she has neuropathy Muscle Tone Muscle Tone WNL Yes M6 PT-IP Treatment Start: 01/11/21 10:58 Freq: NEEDED Status: Active Protocol: Document 01/12/21 09:43 KS (Rec: 01/12/21 10:47 KS [id number]) Physical Therapy Treatment Exercises Exercises Ankle Pumps,Gluteal Sets Education Education Provided Precautions,Safety M7 PT-IP Assessment and Plan Start: 01/11/21 10:58 Freq: NEEDED Status: Active Protocol: Document 01/12/21 09:43 ROSE MARY (Rec: 01/12/21 10:47 KS [id number]) PT Summary Assessment and Plan Potential Rehabilitation Potential Good Status of Condition at Evaluation Evolving Summary Impairments Pain,ROM,Strength,Balance, Coordination,Sensation,Tone, Cognition,Bed Mobility, Transfers,Gait,Activity Tolerance Progress Towards Goals Slow Progress due to Pain Assessment Summary Pt showed some improvement w/ bed mobility today, Min A for logroll, Max A for sidelying<> sit. Able to tolerate sit<> Stand and stand step pivot transfer from bed to chair w/ Min A x2 and cues. She continues to be limited in mobility due to high reported pain. She will require SNF to improve strength and functional independence. Goals Bed Mobility Goal Standby Assistance Transfer Goal Standby Assistance,Front Wheeled Walker Gait Goal Standby Assistance,Front Wheel Walker Gait Distance 150 Other Goals up/down 1 step using FWW SBA Days to Meet Goals 10 Frequency of Treatment Frequency Of Treatment Twice a Day Treatment Plan Physical Therapy Treatment Plan Bed Mobility Training,Transfer Training,Gait Training, Therapeutic Exercise,Balance Retraining,Post Op Education, Discharge Planning,Hot or Cold Pack,Neuromuscular Re-ed, Coordination Retraining,Manual Therapy Other Recommendations and Next Treatment Increased ambulation distance Focus w/ FWW, review precautions Precautions Lumbar Precautions Log Roll,No Twisting,Limit Bending,Lifting Restriction of 10 lbs,Gait Belt above Incisional Area Recommendations To Nursing Amount of Assist Needed 2 Person Assist Discharge Recommendations PT Discharge Recommendations SNF Rehab Equipment Needed for Home Before FWW if pt goes home Discharge Transportation Needs at Discharge Wheelchair/Cabulance
--- NOTE | 2021-01-12 11:07 | PC.NURSE ---
Day shift: Pt refused Foleth cath removal at this time. Will ask again after Pt works w/ PT/OT again this afternoon.
[2021-01-12] MEDS: GABAPENTIN 300 MG CAPSULE PO (11:18)
--- NOTE | 2021-01-12 12:10 | PC.NURSE ---
Day shift: Pt wants the Noel cath to stay in place at this time. Explained increased risk of UTI. Pt still wants it in.
--- NOTE | 2021-01-12 13:44 | OT.IP.TRT ---
Current Diagnoses Spondylolisthesis, lumbar region (01/11/21) Spinal stenosis, lumbar region without neurogenic claudication (01/11/21) Surgery Performed Operation Date: 01/10/21 12:00 Actual Procedures p L3-4, L4-5 TLIF - Robot(Not Applicable) - Huber Neville MD Occupational Therapy Treatment Note M2 OT-IP Current Condition Start: 01/11/21 10:59 Freq: Status: Active Protocol: Document 01/11/21 11:05 [facility] (Rec: 01/11/21 11:22 [facility] [id number]) Occupational Therapy Current Condition Current Condition Evaluation Date 01/11/21 Treatment Diagnosis S/p L3-4, L4-5 TLIF Diagnosis Onset Date 01/10/21 M3 OT- IP Subjective and Pain Start: 01/11/21 10:59 Freq: Status: Active Protocol: Document 01/12/21 13:53 [facility] (Rec: 01/12/21 13:58 [facility] [id number]) OT- Subjective Occupational Therapy Visit Type Type Treatment Note Visit Start Time 13:25 Visit Stop Time 13:44 Total Visit Minutes 19 Occupational Therapy Visit Comments Patient Comments 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 Patient/Caregiver Goals TO go to skilled rehab. OT Pain Assessment Pain When Pain Assessed At Rest Pain Present Pain Present Pain Reported Location Back Intensity 7 Scale Used Numeric (0 - 10) M5 OT- IP IADL's Start: 01/11/21 10:59 Freq: Status: Active Protocol: Document 01/11/21 11:05 [facility] (Rec: 01/11/21 11:22 [facility] [id number]) OT-Instrumental Activities of Daily Living Home Safety Awareness Awareness of Need for Assistance at Home Good Awareness Ability to Problem Solve Emergency Able to Problem Solve Situations Medication Management Medication Management Comments Prior per pt able to do on her own. Meal Preparation Meal Preparation Comments Now pt will need assist due to decreased mobility needs. Tape Making Machine Operator Tape Making Machine Operator Comments Now pt will need assist due to decreased mobility needs. M6 OT- IP Functional Cognition Start: 01/11/21 10:59 Freq: Status: Active Protocol: Document 01/12/21 13:53 [facility] (Rec: 01/12/21 13:58 [facility] [id number]) Cognitive Factors Limiting Selfcare Function Cognitive Comments Cognitive Assessment Comments Pt needing cues for reassurance, encouragement and cues to follow for her back precautions. M7 OT- IP Mobility and Balance Start: 01/11/21 10:59 Freq: Status: Active Protocol: Document 01/12/21 13:53 [facility] (Rec: 01/12/21 13:58 [facility] [id number]) OT- Bed Mobility Assessment Rolling Type of Rolling Bilateral Level of Assistance Minimal Assistance Supine to Sit Supine to Sit Assist Moderate Assistance,2 Person Assistance Sit to Supine Sit to Supine Assist Moderate Assistance,2 Person Assistance OT-Transfer Assessment Sit to and From Stand Sit to and from Stand Minimal Assistance,2 Person Assistance Transfers Transfer Ability Minimal Assistance,2 Person Assistance Technique Transfer Destination Bed,Chair Transfer Technique Stand Step Pivot Devices Transfer Assistive Devices Gait Belt,Front Wheeled Walker Comments Mobility Comments Pt needing doing better with mobility needs today and able to get up and walk in the room to the window with CARLOS x2 with FWW. OT- Balance Assessment Sitting Balance and Reactions Static Sitting Balance Ability Good Dynamic Sitting Balance Ability Fair Standing Balance and Reactions Static Standing Balance Ability Poor Dynamic Standing Balance Ability Poor M9 OT- IP Assessment and Plan Start: 01/11/21 10:59 Freq: Status: Active Protocol: Document 01/12/21 13:53 [facility] (Rec: 01/12/21 13:58 [facility] [id number]) OT Summary Assessment and Plan Potential Rehabilitation Potential Good Analytic Complexity at Evaluation Low Summary OT Impairments Pain,Balance,Functional Mobility,Dressing,Toileting, Bathing,Toilet Transfers, Shower Transfers,Activity Tolerance Progress Towards Goals Slow Progress due to Pain,Slow Progress due to Activity Tolerance Assessment Summary Pt doing better today and needing encouragement and cues to follow for her back precaution as pt is very painful especially during transition of movement. Pt will benefit from skilled rehab when medically stable. Goals Grooming Goal Independent Dressing Goal Independent Toileting Goal Independent Bathing Goal Independent Toilet Transfer Goal Independent Patient/Caregiver Education Goal Demonstrate Post-Op Precautions Days to Meet Goals 24 Frequency of Treatment Frequency Of Treatment Once a Day Treatment Plan OT Treatment Plan ADL Training,Functional Cognition Training,Functional Mobility,Patient/Family Education,Discharge Planning Other Treatment Recommendations and Next Stand at the sink to do Treatment Focus grooming needs. Issue LB dressing equipment. Discharge Recommendations OT Discharge Recommendations SNF Rehab Home Equipment Needs Tub bench, FWW Transportation Needs at Discharge Wheelchair/Cabulance
--- NOTE | 2021-01-12 13:50 | PT.IPTN ---
Current Diagnoses Spondylolisthesis, lumbar region (01/11/21) Spinal stenosis, lumbar region without neurogenic claudication (01/11/21) Surgery Performed Operation Date: 01/10/21 12:00 Actual Procedures p L3-4, L4-5 TLIF - Robot(Not Applicable) - Huber Neville MD Physical Therapy Treatment Note M2 PT-IP Current Condition Start: 01/11/21 10:58 Freq: NEEDED Status: Active Protocol: Document 01/11/21 09:10 [facility] (Rec: 01/11/21 11:08 [facility] [id number]) Physical Therapy Current Condition Current Condition Evaluation Date 01/11/21 Treatment Diagnosis s/p L3-4, L4-5 TLIF; difficulty in walking Onset Date 01/10/21 M3 PT-IP Subjective Start: 01/11/21 10:58 Freq: NEEDED Status: Active Protocol: Document 01/12/21 13:27 [facility] (Rec: 01/12/21 14:18 [facility] [id number]) Subjective Physical Therapy Visit Type Type Treatment Note Visit Start Time 13:27 Visit Stop Time 13:50 Total Visit Minutes 23 Notes partial Co-treat / OT Number of COOK CHILI Visits 2 Physical Therapy Visit Comments Patient Comments agreeable to do PT Therapy Pain Assessment Pain When Pain Assessed During Mobility Pain Present Pain Present Pain Reported Location Back Scale Used not quantified Description Burning Pain Behaviors Calling Out,Facial Grimacing, Guarding,Moaning,Restlessness, Wincing Pain Management Techniques Distraction,Re-positioning, Timing of Activity with Medications M4 PT-IP Mobility and Gait Start: 01/11/21 10:58 Freq: NEEDED Status: Active Protocol: Document 01/12/21 13:27 [facility] (Rec: 01/12/21 14:18 [facility] [id number]) PT-Bed Mobility Assessment Rolling Type of Rolling Log Rolling Level of Assist Minimal Assistance Supine to Sit Supine to Sit Moderate Assistance,2 Person Assistance,Head of Bed Elevated,Bedrails Sit to Supine Sit to Supine Maximum Assistance,1 Person Assistance,Head of Bed Elevated,Bedrails Scooting Scooting to Edge of Bed Maximum Assistance Scooting Up and Down in Bed Maximum Assistance PT-Transfer Assessment Sit to and From Stand Sit to and from Stand Minimal Assistance,2 Person Assistance,Use of Upper Extremities Equipment Transfer Assistive Device Gait Belt,Front Wheeled Walker Orthotic/Prosthetic Devices or Brace: No Transfers Transfer Destination Bed Transfer Technique Pt ambulated w/ FWW Transfer Ability Level of Assist Moderate Assistance,Maximum Assistance,2 Person Assistance ,Use of Upper Extremities Comments Mobility Comments Pt in bed upon arrival from therapy and able to recall 3/3 spinal precautions. Min A ad cues for logroll to R, Mod A x2 for sup<>sit, Max A for scooting EOB. Pt then sit<> stand w/ FWW Min A x2. She then ambulated ~20 ft w/ FWW Min A x2. She returned to bed, Max A for sit<>Sidelying and repositioning. Pt then completed 1x10 bilateral quad sets, 1x10 heel slides on R, 1x5 heel slides L, and 1x10 bilateral ankle pumps. Pt left in bed w/ all needs in reach. Gait Assessment Gait Gait Assistance Required: Minimum Assistance,2 Person Assist Distance (Feet) 20 Assistive Devices Assistive Device Gait Belt,Front Wheeled Walker Orthotic/Prosthetic Devices or Brace: No Gait Deviations General Gait Pattern Decreased Stride Length, Decreased Feet Clearance Factors Limiting Gait Function Factors Limiting Gait Function Decreased Sensation,Difficulty Following Directions,Pain Comments Gait Comments Please refer to mobility section for details. PT-Balance Assessment Sitting Balance and Reactions Static Sitting Balance Ability Good Dynamic Sitting Balance Ability Fair Standing Balance and Reactions Static Standing Balance Ability Fair Dynamic Standing Balance Ability Fair Device Used FWW M5 PT-IP Objective Assessments Start: 01/11/21 10:58 Freq: NEEDED Status: Active Protocol: Document 01/11/21 09:10 [facility] (Rec: 01/11/21 11:08 [facility] [id number]) Orientation Orientation/Cognition Level of Alertness Alert Orientation Name,Place,Situation Language Function Ability No Deficits Noted Safety Awareness Decreased Safety Awareness Memory Description Short Term Impaired Gross Range of Motion Lower Extremity ROM Assessment Within Functional Limits Strength Comments Strength Comments LLE: 4-/5 RLE 3+/5 Sensation Assessment Sensation Gross Sensation Right LE Impaired,Left LE Impaired Sensation Description Numbness,Tingling Comments Sensation Comments chronic B feet numbness/ tingling; pt stated that she has neuropathy Muscle Tone Muscle Tone WNL Yes M6 PT-IP Treatment Start: 01/11/21 10:58 Freq: NEEDED Status: Active Protocol: Document 01/12/21 13:27 [facility] (Rec: 01/12/21 14:18 [facility] [id number]) Physical Therapy Treatment Exercises Exercises Ankle Pumps,Quad Sets,Heel Slides Education Education Provided Precautions,Safety M7 PT-IP Assessment and Plan Start: 01/11/21 10:58 Freq: NEEDED Status: Active Protocol: Document 01/12/21 13:27 [facility] (Rec: 01/12/21 14:18 [facility] [id number]) PT Summary Assessment and Plan Potential Rehabilitation Potential Good Status of Condition at Evaluation Evolving Summary Impairments Pain,ROM,Strength,Balance, Coordination,Sensation,Tone, Cognition,Bed Mobility, Transfers,Gait,Activity Tolerance Progress Towards Goals Slow Progress due to Pain Assessment Summary Pt continues torequire Mod A x2 or Max A for most bed mobility, Min A for logroll. Min A x2 for transfers and ambulation w/ FWW, but able to tolerate ~20 ft this PM. She continues to be limited in mobility due to high reported pain. She will require SNF to improve strength and functional independence. Goals Bed Mobility Goal Standby Assistance Transfer Goal Standby Assistance,Front Wheeled Walker Gait Goal Standby Assistance,Front Wheel Walker Gait Distance 150 Other Goals up/down 1 step using FWW SBA Days to Meet Goals 10 Frequency of Treatment Frequency Of Treatment Twice a Day Treatment Plan Physical Therapy Treatment Plan Bed Mobility Training,Transfer Training,Gait Training, Therapeutic Exercise,Balance Retraining,Post Op Education, Discharge Planning,Hot or Cold Pack,Neuromuscular Re-ed, Coordination Retraining,Manual Therapy Other Recommendations and Next Treatment Increased ambulation distance Focus w/ FWW, review precautions Precautions Lumbar Precautions Log Roll,No Twisting,Limit Bending,Lifting Restriction of 10 lbs,Gait Belt above Incisional Area Recommendations To Nursing Amount of Assist Needed 2 Person Assist Discharge Recommendations PT Discharge Recommendations SNF Rehab Equipment Needed for Home Before FWW if pt goes home Discharge
--- NOTE | 2021-01-12 13:54 | PC.NURSE ---
Day shift:\ Per discussion Pt wants to leave the Noel cath in until tomorrow (01/13/21).
--- NOTE | 2021-01-12 15:11 | CM.DPC ---
DC Planning Cont: Spoke with Dori at [facility]. Patient unable to be accepted for admission, no bed available. CM spoke with Natalie at [facility] who will review referral and speak with [facility] for possible admission Friday/pending authorization and bed available. Natalie will contact [facility] today to begin auth process. PASSR completed. CM will follow up with [facility] over weekend to work on dc plan. Rickey MORGAN
[2021-01-12] MEDS: METFORMIN HCL 500 MG TABLET PO (16:38)
[2021-01-12] MEDS: SENNOSIDES 8.6 MG TABLET 17.2 MG PO (20:00)
[2021-01-12] MEDS: QUETIAPINE 100 MG TABLET 50 MG PO (22:05)
[2021-01-13] MEDS: HYDROMORPHONE 2 MG TABLET PO ×6 (02:04→19:39)
[2021-01-13] MEDS: hydrOXYzine pamoate 25 MG CAPSULE PO ×5 (02:22→20:40)
[2021-01-13 04:34] VITALS: BP 119/75; PULSE 97; RESP 16; TEMP 36.3; O2SAT 96
[2021-01-13 08:20] VITALS: BP 144/89; PULSE 91; RESP 16; TEMP 36.5; O2SAT 100
[2021-01-13] MEDS: LORATADINE 10 MG TABLET PO (08:49)
[2021-01-13] MEDS: DOCUSATE 100 MG CAPSULE PO ×2 (08:49→20:39)
[2021-01-13] MEDS: GABAPENTIN 300 MG CAPSULE 600 MG PO ×2 (08:49→20:40)
[2021-01-13] MEDS: FERROUS SULFATE 325 MG TABLET PO ×2 (08:49→20:40)
[2021-01-13] MEDS: buPROPion SR 150 MG TAB 300 MG PO ×2 (08:50→20:40)
[2021-01-13] MEDS: FISH OIL 1,000 MG CAPSULE 1000 MG PO (08:50)
[2021-01-13] MEDS: NICOTINE 14 PATCH 14 MG TOP (08:50)
[2021-01-13] MEDS: SODIUM CHLORIDE 0.9% FLUSH 10 ML IV ×2 (08:51→20:40)
--- NOTE | 2021-01-13 09:37 | OT.IP.TRT ---
Current Diagnoses Spondylolisthesis, lumbar region (01/11/21) Spinal stenosis, lumbar region without neurogenic claudication (01/11/21) Surgery Performed Operation Date: 01/10/21 12:00 Actual Procedures p L3-4, L4-5 TLIF - Robot(Not Applicable) - Huber Neville MD Occupational Therapy Treatment Note M2 OT-IP Current Condition Start: 01/11/21 10:59 Freq: Status: Active Protocol: Document 01/11/21 11:05 [facility] (Rec: 01/11/21 11:22 [facility] [id number]) Occupational Therapy Current Condition Current Condition Evaluation Date 01/11/21 Treatment Diagnosis S/p L3-4, L4-5 TLIF Diagnosis Onset Date 01/10/21 M3 OT- IP Subjective and Pain Start: 01/11/21 10:59 Freq: Status: Active Protocol: Document 01/13/21 10:03 [facility] (Rec: 01/13/21 10:09 [facility] [id number]) OT- Subjective Occupational Therapy Visit Type Type Treatment Note Visit Start Time 09:25 Visit Stop Time 09:37 Total Visit Minutes 12 Occupational Therapy Visit Comments Patient Comments Pt not wanting to get out of bed before talking to PA as having lots of shooting pain in her left leg, able to notify the PA of pt's request to talk to him regarding her pain. Patient/Caregiver Goals TO go to skilled rehab. OT Pain Assessment Pain When Pain Assessed At Rest Pain Present Pain Present Pain Reported Location Left Leg Intensity 8 Scale Used Numeric (0 - 10) M4 OT- IP ADL's Start: 01/11/21 10:59 Freq: Status: Active Protocol: Document 01/13/21 10:03 [facility] (Rec: 01/13/21 10:09 [facility] [id number]) OT ADL-Grooming Comments OT Grooming Comments Pt able to wash her face with a wash cloth after set-up while in bed. OT ADL-Dressing General Eval Lower Body Dressing Ability Minimal Assistance Comments OT Dressing Comments Able to show pt LB dressing equipment and able to practice with her right foot while lying in the bed. OT ADL-Toileting Comments OT Toileting Comments Encouraged pt to get up later, especially to try to use the BSC as pt states did not like using the bed damico last night. Educated pt to karrie the weaker side first and take out last to help increase her ease for LB dressing needs. M5 OT- IP IADL's Start: 01/11/21 10:59 Freq: Status: Active Protocol: Document 01/11/21 11:05 [facility] (Rec: 01/11/21 11:22 [facility] [id number]) OT-Instrumental Activities of Daily Living Home Safety Awareness Awareness of Need for Assistance at Home Good Awareness Ability to Problem Solve Emergency Able to Problem Solve Situations Medication Management Medication Management Comments Prior per pt able to do on her own. Meal Preparation Meal Preparation Comments Now pt will need assist due to decreased mobility needs. 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 M6 OT- IP Functional Cognition Start: 01/11/21 10:59 Freq: Status: Active Protocol: Document 01/13/21 10:03 [facility] (Rec: 01/13/21 10:09 [facility] [id number]) Cognitive Factors Limiting Selfcare Function Cognitive Comments Cognitive Assessment Comments Pt needing lots of reassurance , encouragement, and concrete instructions at this time. M7 OT- IP Mobility and Balance Start: 01/11/21 10:59 Freq: Status: Active Protocol: Document 01/12/21 13:53 [facility] (Rec: 01/12/21 13:58 [facility] [id number]) OT- Bed Mobility Assessment Rolling Type of Rolling Bilateral Level of Assistance Minimal Assistance Supine to Sit Supine to Sit Assist Moderate Assistance,2 Person Assistance Sit to Supine Sit to Supine Assist Moderate Assistance,2 Person Assistance OT-Transfer Assessment Sit to and From Stand Sit to and from Stand Minimal Assistance,2 Person Assistance Transfers Transfer Ability Minimal Assistance,2 Person Assistance Technique Transfer Destination Bed,Chair Transfer Technique Stand Step Pivot Devices Transfer Assistive Devices Gait Belt,Front Wheeled Walker Comments Mobility Comments Pt needing doing better with mobility needs today and able to get up and walk in the room to the window with CARLOS x2 with FWW. OT- Balance Assessment Sitting Balance and Reactions Static Sitting Balance Ability Good Dynamic Sitting Balance Ability Fair Standing Balance and Reactions Static Standing Balance Ability Poor Dynamic Standing Balance Ability Poor M9 OT- IP Assessment and Plan Start: 01/11/21 10:59 Freq: Status: Active Protocol: Document 01/13/21 10:03 [facility] (Rec: 01/13/21 10:09 [facility] [id number]) OT Summary Assessment and Plan Potential Rehabilitation Potential Good Analytic Complexity at Evaluation Low Summary OT Impairments Pain,Balance,Functional Mobility,Dressing,Toileting, Bathing,Toilet Transfers, Shower Transfers,Activity Tolerance Progress Towards Goals Slow Progress due to Pain,Slow Progress due to Activity Tolerance Assessment Summary Pt will strongly benefit from skilled rehab prior to going home. Goals Grooming Goal Independent Dressing Goal Independent Toileting Goal Independent Bathing Goal Independent Toilet Transfer Goal Independent Patient/Caregiver Education Goal Demonstrate Post-Op Precautions Days to Meet Goals 23 Frequency of Treatment Frequency Of Treatment Once a Day Treatment Plan OT Treatment Plan ADL Training,Functional Cognition Training,Functional Mobility,Patient/Family Education,Discharge Planning Other Treatment Recommendations and Next Transfer to [facility] with MODAx1 Treatment Focus Discharge Recommendations OT Discharge Recommendations SNF Rehab Home Equipment Needs Tub bench, FWW Transportation Needs at Discharge Wheelchair/Cabulance
--- NOTE | 2021-01-13 10:19 | PM.DS.1 ---
History of Present Illness History of Present Illness Date Patient Seen: 01/13/21 Time Patient Seen: 10:19 Chief complaint: Back pain Narrative: Patient notes pain is still moderate to severe. Burning sensation in the left lateral leg and knee. Denies fever or chills. No nausea or vomiting. Discharge Providers Provider Date of admission: 01/11/21 13:58 Discharge Date: 01/13/21 Primary care physician: Juventino Coe MD Consults: 01/01/21 13:43 Consult to Respiratory Therapy Evaluate & Treat Comment: Current 1PPD smoker, would like a nicotine patch Physician Instructions: Evaluate and treat 01/10/21 18:33 Consult to Occupational Therapy Evaluate & Treat Comment: Physician Instructions: Evaluate and treat Consult to Physical Therapy Evaluate & Treat Comment: Physician Instructions: Evaluate and Treat Discharge provider: Viraj Rouse PA-C Summary Hospital Course Discharge Diagnosis: 1. L3-4, L4-5 spondylolisthesis 2. Lumbar spinal stenosis with neurogenic claudication Hospital Course: 1. L3-4, L4-5 Postero-lateral and posterior interbody fusion 2. L3-4, L4-5 interbody cage placement. 3. L3-4, L4-5 decompressive laminectomy with bilateral facetecomies 4. L3-4, L4-5 Posterior segmental instrumentation 5. Poc[place]ontas of bone marrow from iliac crest 6. Utilization of microsurgical technique and operating microscope 7. Robotic navigation assisted surgery Same procedure as scheduled: Yes Indications: Patient has been having chronic back pain and worsening lumbar radiculopathy. Patient failed multiple conservative management with worsening pain weakness and numbness in her lower extremity.? Patient has been having difficulty performing activity of daily living.? After discussing risks benefits of treatment options, patient elected proceed with surgery. Surgeon: Huber Neville Public Policy Mediator: Viraj Rouse Click Yes if Unassisted: No Anesthesia Type: General Operative Notes Closure Type: primary Specimen(s): none sent Prosthetic devices, grafts, tissues, transplants, or devices: Globus CREO MIS screws, Rise cages Applied: catheter Estimated Blood Loss (mL): 150 Blood products transfused: none Patient admitted to the hospital for the above-mentioned procedure. Patient taken to the operating room on January 10, 2021. Patient back in her room recovering well. Patient is in stable condition. Due to lack of mobility assistance at home patient will be discharged to [facility] facility today. Exam Vital Signs (past 8 hours): - 12/04/21 04:34 01/13/21 08:20 Temperature 97.3 F L 97.7 F Pulse Rate 97 H 91 H Respiratory Rate 16 16 Blood Pressure 119/75 144/89 H Pulse Oximetry 96 100 Oxygen Delivery Method Nasal Cannula Oxygen Flow Rate 0 Narrative Exam Narrative: 60-year-old female resting comfortably in bed in no apparent distress. Dressing is Clean, dry, intact.. Motor functions intact bilateral lower extremities. Sensation grossly intact to light touch bilateral lower extremities. Objective Labs Result Diagrams: 01/11/21 05:47 PFSH Medical History Arthritis Diverticulosis Easy bruisability Neuropathy Pre-diabetes Sciatica Spinal stenosis Stroke (2016) Tubal Surgical History History of bilateral tubal ligation History of carpal tunnel surgery of right wrist Hx of tonsillectomy Previous section Social History household members: none Smoking Status: Current every day smoker alcohol intake: current Discharge Assessment & Plan Assessment and Plan Assessment: Patient progressing slower than expected Plan of Treatment: Discharge to penitentiary facility today. Discharge Plan Discharge Plan Patient Disposition: SNF Transfer to: [facility] Under care of provider: Dr. Neville Transportation: Danya Pelaez certify the postop hospital penitentiary care is medically necessary on a continuing basis for any conditions for which he/ she received care during this hospitalization.: Yes The receiving facility has agreed to accept transfer and provide medical treatment.: Yes Discharge orders & Medications Prescriptions: New acetaminophen 325 mg Tablet 650 mg PO Q6HR PRN (Reason: Pain, Mild (1-3)) Qty: 60 0RF hydromorphone 2 mg Tablet 2 mg PO Q3H PRN (Reason: Pain, Severe (7-10)) Qty: 40 0RF docusate sodium 100 mg Capsule 100 mg PO BID Qty: 20 0RF oxycodone 5 mg Tablet 10 mg PO Q3HR PRN (Reason: Pain, Severe (7-10)) Qty: 30 0RF hydroxyzine pamoate 25 mg Capsule 25 mg PO Q4HR PRN (Reason: Nausea And Vomiting) Qty: 40 0RF Continued metformin 500 mg Tablet 500 mg PO QPM 0RF bupropion HCl 150 mg Tablet Sustained-Release 12 Hr 300 mg PO BID 0RF quetiapine 100 mg Tablet 50 mg PO DAILY PRN (Reason: Sleep) 0RF Label Comments: seroquel ferrous sulfate [Iron (ferrous sulfate)] 325 mg (65 mg iron) Tablet 325 mg PO BID 0RF gabapentin 300 mg Capsule 1,500 mg PO SEEINSTR 0RF Rx Instructions: 600 mg bid, 300mg midday omega-3 acid ethyl esters 1 gram Capsule 1 cap PO DAILY 0RF levocetirizine 5 mg Tablet 5 mg PO QPM 0RF Discontinued aspirin 81 mg Tablet,Delayed Release (Dr/Ec) 81 mg PO DAILY 0RF naproxen 500 mg Tablet 500 mg PO TID 0RF Follow up/Referrals: Juventino Coe MD [Primary Care Provider] - Huber Neville MD [Physician] - (2 weeks) Discharge Health Status Multidrug resistant organism: No MDRO Diet/Activity/Treatments Diet: Carb-consistent/Diabetic Activity: Limit bending, lifting, twisting Cold/Heat Therapy: Ice to back as needed Skin/Wound/Dressing Care Report to your healthcare provider any signs of infection, such as:: chills, fever, increased pain, unusual drainage and unusual redness Dressing: Keep dressing clean and dry Special Rehabilitation Services Reason for rehabilitation: Post-operative therapy Rehab type: Physical therapy and Occupational therapy Visit Report/Discharge Packet Instructions: DI for Prescription Opioid Use, DI for Transforaminal Lumbar Interbody Fusion Stand Alone Forms: Surgery Discharge Discharge Data Primary Care Provider: Juventino Coe Attending Provider: Huber Neville
--- NOTE | 2021-01-13 11:35 | PT.IPTN ---
Current Diagnoses Spondylolisthesis, lumbar region (01/11/21) Spinal stenosis, lumbar region without neurogenic claudication (01/11/21) Surgery Performed Operation Date: 01/10/21 12:00 Actual Procedures p L3-4, L4-5 TLIF - Robot(Not Applicable) - Huber Neville MD Physical Therapy Treatment Note M2 PT-IP Current Condition Start: 01/11/21 10:58 Freq: NEEDED Status: Active Protocol: Document 01/11/21 09:10 AB (Rec: 01/11/21 11:08 AB [id number]) Physical Therapy Current Condition Current Condition Evaluation Date 01/11/21 Treatment Diagnosis s/p L3-4, L4-5 TLIF; difficulty in walking Onset Date 01/10/21 M3 PT-IP Subjective Start: 01/11/21 10:58 Freq: NEEDED Status: Active Protocol: Document 01/12/21 13:27 KS (Rec: 01/12/21 14:18 KS [id number]) Subjective Physical Therapy Visit Type Type Treatment Note Visit Start Time 13:27 Visit Stop Time 13:50 Total Visit Minutes 23 Notes partial Co-treat / OT Number of HOUSE CALLS NURSE Visits 2 Physical Therapy Visit Comments Patient Comments agreeable to do PT Therapy Pain Assessment Pain When Pain Assessed During Mobility Pain Present Pain Present Pain Reported Location Back Scale Used not quantified Description Burning Pain Behaviors Calling Out,Facial Grimacing, Guarding,Moaning,Restlessness, Wincing Pain Management Techniques Distraction,Re-positioning, Timing of Activity with Medications M4 PT-IP Mobility and Gait Start: 01/11/21 10:58 Freq: NEEDED Status: Active Protocol: Document 01/12/21 13:27 KS (Rec: 01/12/21 14:18 KS [id number]) PT-Bed Mobility Assessment Rolling Type of Rolling Log Rolling Level of Assist Minimal Assistance Supine to Sit Supine to Sit Moderate Assistance,2 Person Assistance,Head of Bed Elevated,Bedrails Sit to Supine Sit to Supine Maximum Assistance,1 Person Assistance,Head of Bed Elevated,Bedrails Scooting Scooting to Edge of Bed Maximum Assistance Scooting Up and Down in Bed Maximum Assistance PT-Transfer Assessment Sit to and From Stand Sit to and from Stand Minimal Assistance,2 Person Assistance,Use of Upper Extremities Equipment Transfer Assistive Device Gait Belt,Front Wheeled Walker Orthotic/Prosthetic Devices or Brace: No Transfers Transfer Destination Bed Transfer Technique Pt ambulated w/ FWW Transfer Ability Level of Assist Moderate Assistance,Maximum Assistance,2 Person Assistance ,Use of Upper Extremities Comments Mobility Comments Pt in bed upon arrival from therapy and able to recall 3/3 spinal precautions. Min A ad cues for logroll to R, Mod A x2 for sup<>sit, Max A for scooting EOB. Pt then sit<> stand w/ FWW Min A x2. She then ambulated ~20 ft w/ FWW Min A x2. She returned to bed, Max A for sit<>Sidelying and repositioning. Pt then completed 1x10 bilateral quad sets, 1x10 heel slides on R, 1x5 heel slides L, and 1x10 bilateral ankle pumps. Pt left in bed w/ all needs in reach. Gait Assessment Gait Gait Assistance Required: Minimum Assistance,2 Person Assist Distance (Feet) 20 Assistive Devices Assistive Device Gait Belt,Front Wheeled Walker Orthotic/Prosthetic Devices or Brace: No Gait Deviations General Gait Pattern Decreased Stride Length, Decreased Feet Clearance Factors Limiting Gait Function Factors Limiting Gait Function Decreased Sensation,Difficulty Following Directions,Pain Comments Gait Comments Please refer to mobility section for details. PT-Balance Assessment Sitting Balance and Reactions Static Sitting Balance Ability Good Dynamic Sitting Balance Ability Fair Standing Balance and Reactions Static Standing Balance Ability Fair Dynamic Standing Balance Ability Fair Device Used FWW M5 PT-IP Objective Assessments Start: 01/11/21 10:58 Freq: NEEDED Status: Active Protocol: Document 01/11/21 09:10 AB (Rec: 01/11/21 11:08 AB [id number]) Orientation Orientation/Cognition Level of Alertness Alert Orientation Name,Place,Situation Language Function Ability No Deficits Noted Safety Awareness Decreased Safety Awareness Memory Description Short Term Impaired Gross Range of Motion Lower Extremity ROM Assessment Within Functional Limits Strength Comments Strength Comments LLE: 4-/5 RLE 3+/5 Sensation Assessment Sensation Gross Sensation Right LE Impaired,Left LE Impaired Sensation Description Numbness,Tingling Comments Sensation Comments chronic B feet numbness/ tingling; pt stated that she has neuropathy Muscle Tone Muscle Tone WNL Yes M6 PT-IP Treatment Start: 01/11/21 10:58 Freq: NEEDED Status: Active Protocol: Document 01/12/21 13:27 KS (Rec: 01/12/21 14:18 KS [id number]) Physical Therapy Treatment Exercises Exercises Ankle Pumps,Quad Sets,Heel Slides Education Education Provided Precautions,Safety M7 PT-IP Assessment and Plan Start: 01/11/21 10:58 Freq: NEEDED Status: Active Protocol: Document 01/12/21 13:27 KS (Rec: 01/12/21 14:18 KS [id number]) PT Summary Assessment and Plan Potential Rehabilitation Potential Good Status of Condition at Evaluation Evolving Summary Impairments Pain,ROM,Strength,Balance, Coordination,Sensation,Tone, Cognition,Bed Mobility, Transfers,Gait,Activity Tolerance Progress Towards Goals Slow Progress due to Pain Assessment Summary Pt continues torequire Mod A x2 or Max A for most bed mobility, Min A for logroll. Min A x2 for transfers and ambulation w/ FWW, but able to tolerate ~20 ft this PM. She continues to be limited in mobility due to high reported pain. She will require SNF to improve strength and functional independence. Goals Bed Mobility Goal Standby Assistance Transfer Goal Standby Assistance,Front Wheeled Walker Gait Goal Standby Assistance,Front Wheel Walker Gait Distance 150 Other Goals up/down 1 step using FWW SBA Days to Meet Goals 10 Frequency of Treatment Frequency Of Treatment Twice a Day Treatment Plan Physical Therapy Treatment Plan Bed Mobility Training,Transfer Training,Gait Training, Therapeutic Exercise,Balance Retraining,Post Op Education, Discharge Planning,Hot or Cold Pack,Neuromuscular Re-ed, Coordination Retraining,Manual Therapy Other Recommendations and Next Treatment Increased ambulation distance Focus w/ FWW, review precautions Precautions Lumbar Precautions Log Roll,No Twisting,Limit Bending,Lifting Restriction of 10 lbs,Gait Belt above Incisional Area Recommendations To Nursing Amount of Assist Needed 2 Person Assist Discharge Recommendations PT Discharge Recommendations SNF Rehab Equipment Needed for Home Before FWW if pt goes home Discharge
--- NOTE | 2021-01-13 11:39 | CM.DPC ---
Addendum entered by Katherin Montanez R.N. 01/13/21 12:58: Spoke to patient, she indicated, she thought she was going to [facility] today. Let her know that insurance auth was not yet received, but facility has initiated this through her insurance. Asked her if she has been vaccinated for COVID, and patient indicated, she has. Called and updated Natalie at [facility]. She indicated, she has not yet heard from [facility], she initiated the auth late yesterday, on Friday. She indicated, only one facility can do the auth, so she hopes that no other facilities are also working on this. Let her know that they are the only facility at this time. She indicated, she should have the auth by Friday, possibly tomorrow, but not sure. Will touch base with Natalie tomorrow. May be able to go ahead and arrange transportation for Friday tomorrow. Katherin Montanez RN/[employer] Original Note: DCP Cont: Called Natalie at [facility], and she confirmed that she did received the referral, and will not get the [employer] auth until Friday, at least. She does want to know if patient was vaccinated, as this will determine if they can accept. Will ask patient. Viraj Rouse, PAC, put in discharge orders. Called his phone and left him a message that [facility] can't accept today for they do not yet have [employer] Auth. P: DCP will talk to patient to see if she was vaccinated, and get back to Natalie at [facility]. Plan is for her to go to [facility] as soon as the auth is obtained. Katherin Montanez RN/[employer]
--- NOTE | 2021-01-13 12:02 | PT.IPTN ---
Current Diagnoses Spondylolisthesis, lumbar region (01/11/21) Spinal stenosis, lumbar region without neurogenic claudication (01/11/21) Surgery Performed Operation Date: 01/10/21 12:00 Actual Procedures p L3-4, L4-5 TLIF - Robot(Not Applicable) - Huber Neville MD Physical Therapy Treatment Note M2 PT-IP Current Condition Start: 01/11/21 10:58 Freq: NEEDED Status: Active Protocol: Document 01/11/21 09:10 AB (Rec: 01/11/21 11:08 AB [email or web address]) Physical Therapy Current Condition Current Condition Evaluation Date 01/11/21 Treatment Diagnosis s/p L3-4, L4-5 TLIF; difficulty in walking Onset Date 01/10/21 M3 PT-IP Subjective Start: 01/11/21 10:58 Freq: NEEDED Status: Active Protocol: Document 01/13/21 11:35 RBD (Rec: 01/13/21 14:13 RBD [id number]) Subjective Physical Therapy Visit Type Type Treatment Note Visit Start Time 11:35 Visit Stop Time 12:02 Total Visit Minutes 27 Number of SPECIAL PROCEDURES TECHNOLOGIST Visits 3 Physical Therapy Visit Comments Patient Comments agreeable to do PT Therapy Pain Assessment Pain When Pain Assessed During Mobility Pain Present Pain Present Pain Reported Location Back Scale Used not quantified Description Burning,Tightness Pain Behaviors Calling Out,Facial Grimacing, Guarding,Moaning,Restlessness, Wincing Pain Management Techniques Distraction,Re-positioning, Timing of Activity with Medications M4 PT-IP Mobility and Gait Start: 01/11/21 10:58 Freq: NEEDED Status: Active Protocol: Document 01/13/21 11:35 RBD (Rec: 01/13/21 14:13 RBD [id number]) PT-Bed Mobility Assessment Rolling Type of Rolling Log Rolling Level of Assist Moderate Assistance Supine to Sit Supine to Sit Moderate Assistance,1 Person Assistance,Head of Bed Elevated,Bedrails Sit to Supine Sit to Supine Moderate Assistance,1 Person Assistance,Head of Bed Elevated,Bedrails Scooting Scooting to Edge of Bed Maximum Assistance Scooting Up and Down in Bed Maximum Assistance PT-Transfer Assessment Sit to and From Stand Sit to and from Stand Moderate Assistance,1 Person Assistance,Use of Upper Extremities Equipment Transfer Assistive Device Gait Belt,Front Wheeled Walker Orthotic/Prosthetic Devices or Brace: No Transfers Transfer Destination Chair Transfer Technique Pt ambulated w/ FWW Transfer Ability Level of Assist Moderate Assistance,1 Person Assistance,2 Person Assistance ,Use of Upper Extremities Comments Mobility Comments Pt in bed upon arrival from PTAs. Able to recall 3/3 spinal precautions. Mod A x2 w / cues for log roll to the R. Mod A for sup<>sit, Max A for scooting EOB. Pt Min A sit<> stand w/ FWW. Ambulated ~14 ft . Pt able to stand Min A w/ FWW during breif application. Min A x 2 for stand <> sit. Patient left in chair with all needs in reach. Gait Assessment Gait Gait Assistance Required: Minimum Assistance,1 Person Assist Distance (Feet) 14 Assistive Devices Assistive Device Gait Belt,Front Wheeled Walker Orthotic/Prosthetic Devices or Brace: No Gait Deviations General Gait Pattern Decreased Stride Length, Decreased Feet Clearance Factors Limiting Gait Function Factors Limiting Gait Function Decreased Sensation,Pain Comments Gait Comments Please refer to mobility section for details. PT-Balance Assessment Sitting Balance and Reactions Static Sitting Balance Ability Good Dynamic Sitting Balance Ability Fair Standing Balance and Reactions Static Standing Balance Ability Good Dynamic Standing Balance Ability Fair Device Used FWW M5 PT-IP Objective Assessments Start: 01/11/21 10:58 Freq: NEEDED Status: Active Protocol: Document 01/11/21 09:10 AB (Rec: 01/11/21 11:08 AB [id number]) Orientation Orientation/Cognition Level of Alertness Alert Orientation Name,Place,Situation Language Function Ability No Deficits Noted Safety Awareness Decreased Safety Awareness Memory Description Short Term Impaired Gross Range of Motion Lower Extremity ROM Assessment Within Functional Limits Strength Comments Strength Comments LLE: 4-/5 RLE 3+/5 Sensation Assessment Sensation Gross Sensation Right LE Impaired,Left LE Impaired Sensation Description Numbness,Tingling Comments Sensation Comments chronic B feet numbness/ tingling; pt stated that she has neuropathy Muscle Tone Muscle Tone WNL Yes M6 PT-IP Treatment Start: 01/11/21 10:58 Freq: NEEDED Status: Active Protocol: Document 01/13/21 11:35 RBD (Rec: 01/13/21 14:13 RBD [id number]) Physical Therapy Treatment Education Education Provided Precautions,Safety M7 PT-IP Assessment and Plan Start: 01/11/21 10:58 Freq: NEEDED Status: Active Protocol: Document 01/13/21 11:35 RBD (Rec: 01/13/21 14:13 RBD [id number]) PT Summary Assessment and Plan Potential Rehabilitation Potential Good Status of Condition at Evaluation Evolving Summary Impairments Pain,ROM,Strength,Balance, Coordination,Sensation,Tone, Cognition,Bed Mobility, Transfers,Gait,Activity Tolerance Progress Towards Goals Slow Progress due to Pain Assessment Summary Pt remains Mod to Max A for bed mobility. Requires Mod A for Sit<>Stand w/ FWW. Verbilized pain in L LE, however, able to ambulate ~14 ft. Pt demonstates limited performance w/bed mobility and continues to have low tolerance for activity. She will require SNF to improve strength and functional independence. Goals Bed Mobility Goal Standby Assistance Transfer Goal Standby Assistance,Front Wheeled Walker Gait Goal Standby Assistance,Front Wheel Walker Gait Distance 150 Other Goals up/down 1 step using FWW SBA Days to Meet Goals 10 Frequency of Treatment Frequency Of Treatment Twice a Day Treatment Plan Physical Therapy Treatment Plan Bed Mobility Training,Transfer Training,Gait Training, Therapeutic Exercise,Balance Retraining,Post Op Education, Discharge Planning,Hot or Cold Pack,Neuromuscular Re-ed, Coordination Retraining,Manual Therapy Other Recommendations and Next Treatment Increased ambulation distance Focus w/ FWW, review precautions Precautions Lumbar Precautions Log Roll,No Twisting,Limit Bending,Lifting Restriction of 10 lbs,Gait Belt above Incisional Area Recommendations To Nursing Amount of Assist Needed 1 Person Assist Discharge Recommendations PT Discharge Recommendations SNF Rehab Equipment Needed for Home Before FWW if pt goes home Discharge
[2021-01-13] MEDS: GABAPENTIN 300 MG CAPSULE PO (12:22)
--- NOTE | 2021-01-13 15:12 | PT.IPTN ---
Current Diagnoses Spondylolisthesis, lumbar region (01/11/21) Spinal stenosis, lumbar region without neurogenic claudication (01/11/21) Surgery Performed Operation Date: 01/10/21 12:00 Actual Procedures p L3-4, L4-5 TLIF - Robot(Not Applicable) - Huber Neville MD Physical Therapy Treatment Note M2 PT-IP Current Condition Start: 01/11/21 10:58 Freq: NEEDED Status: Active Protocol: Document 01/11/21 09:10 AB (Rec: 01/11/21 11:08 AB [email or web address]) Physical Therapy Current Condition Current Condition Evaluation Date 01/11/21 Treatment Diagnosis s/p L3-4, L4-5 TLIF; difficulty in walking Onset Date 01/10/21 M3 PT-IP Subjective Start: 01/11/21 10:58 Freq: NEEDED Status: Active Protocol: Document 01/13/21 14:45 KS (Rec: 01/13/21 15:29 KS [id number]) Subjective Physical Therapy Visit Type Type Treatment Note Visit Start Time 14:45 Visit Stop Time 15:12 Total Visit Minutes 27 Number of EXPLOSIVES DETONATOR Visits 4 Physical Therapy Visit Comments Patient Comments agreeable to do PT Therapy Pain Assessment Pain When Pain Assessed During Mobility Pain Present Pain Present Pain Reported Location Left Leg Scale Used not quantified Description Burning,Tightness Pain Behaviors Calling Out,Facial Grimacing, Holding Area,Moaning, Restlessness,Wincing Pain Management Techniques Distraction,Modification of Treatment,Re-positioning, Timing of Activity with Medications M4 PT-IP Mobility and Gait Start: 01/11/21 10:58 Freq: NEEDED Status: Active Protocol: Document 01/13/21 14:45 KS (Rec: 01/13/21 15:29 KS [id number]) PT-Bed Mobility Assessment Rolling Type of Rolling Log Rolling Level of Assist Moderate Assistance Supine to Sit Supine to Sit Moderate Assistance,1 Person Assistance,Head of Bed Elevated,Bedrails Sit to Supine Sit to Supine Moderate Assistance,1 Person Assistance,Head of Bed Elevated,Bedrails Scooting Scooting to Edge of Bed Maximum Assistance Scooting Up and Down in Bed Maximum Assistance PT-Transfer Assessment Sit to and From Stand Sit to and from Stand Moderate Assistance,1 Person Assistance,Use of Upper Extremities Equipment Transfer Assistive Device Gait Belt,Front Wheeled Walker Orthotic/Prosthetic Devices or Brace: No Transfers Transfer Destination Chair Transfer Technique Pt ambulated w/ FWW Transfer Ability Level of Assist Moderate Assistance,1 Person Assistance,2 Person Assistance ,Use of Upper Extremities Comments Mobility Comments [facility] and able to recall all spinal precautions. Pt requested to use BSC. Mod A for logroll to R, Mod A for sidelying<>sit, Max A for scooting EOB. Pt calls out in pain when sitting EOB due to pressure on LLE. Pt Mod A for sit<>stand and then ambulated ~10 ft to BSC, unable to void. Min A for sit<>stand and able to remain standing balance at sink ~2 min before ambulating additional 10 ft back to bed. Max A for sit<>sidelying for LE guidance into bed. Pt left in bed w/ alarm on and all needs in reach. Gait Assessment Gait Gait Assistance Required: Minimum Assistance,1 Person Assist Distance (Feet) 20 Assistive Devices Assistive Device Gait Belt,Front Wheeled Walker Orthotic/Prosthetic Devices or Brace: No Gait Deviations General Gait Pattern Decreased Stride Length, Decreased Feet Clearance Factors Limiting Gait Function Factors Limiting Gait Function Decreased Sensation,Pain Comments Gait Comments Please refer to mobility section for details. PT-Balance Assessment Sitting Balance and Reactions Static Sitting Balance Ability Good Dynamic Sitting Balance Ability Fair Standing Balance and Reactions Static Standing Balance Ability Good Dynamic Standing Balance Ability Fair Device Used FWW M5 PT-IP Objective Assessments Start: 01/11/21 10:58 Freq: NEEDED Status: Active Protocol: Document 01/11/21 09:10 AB (Rec: 01/11/21 11:08 AB [id number]) Orientation Orientation/Cognition Level of Alertness Alert Orientation Name,Place,Situation Language Function Ability No Deficits Noted Safety Awareness Decreased Safety Awareness Memory Description Short Term Impaired Gross Range of Motion Lower Extremity ROM Assessment Within Functional Limits Strength Comments Strength Comments LLE: 4-/5 RLE 3+/5 Sensation Assessment Sensation Gross Sensation Right LE Impaired,Left LE Impaired Sensation Description Numbness,Tingling Comments Sensation Comments chronic B feet numbness/ tingling; pt stated that she has neuropathy Muscle Tone Muscle Tone WNL Yes M6 PT-IP Treatment Start: 01/11/21 10:58 Freq: NEEDED Status: Active Protocol: Document 01/13/21 14:45 KS (Rec: 01/13/21 15:29 KS [id number]) Physical Therapy Treatment Exercises Exercises Ankle Pumps Education Education Provided Precautions,Safety M7 PT-IP Assessment and Plan Start: 01/11/21 10:58 Freq: NEEDED Status: Active Protocol: Document 01/13/21 14:45 KS (Rec: 01/13/21 15:29 KS [id number]) PT Summary Assessment and Plan Potential Rehabilitation Potential Good Status of Condition at Evaluation Evolving Summary Impairments Pain,ROM,Strength,Balance, Coordination,Sensation,Tone, Cognition,Bed Mobility, Transfers,Gait,Activity Tolerance Progress Towards Goals Slow Progress due to Pain Assessment Summary Pt continues to require Mod to Max A for bed mobility and is limited by high amounts of reported pain. Able to tolerate ~20 ft ambulation w/ FWW Min A and ~2 min standing balance at sink. She keith require SNF to improve activity tolerance and functional mobility independence. Goals Bed Mobility Goal Standby Assistance Transfer Goal Standby Assistance,Front Wheeled Walker Gait Goal Standby Assistance,Front Wheel Walker Gait Distance 150 Other Goals up/down 1 step using FWW SBA Days to Meet Goals 10 Frequency of Treatment Frequency Of Treatment Twice a Day Treatment Plan Physical Therapy Treatment Plan Bed Mobility Training,Transfer Training,Gait Training, Therapeutic Exercise,Balance Retraining,Post Op Education, Discharge Planning,Hot or Cold Pack,Neuromuscular Re-ed, Coordination Retraining,Manual Therapy Other Recommendations and Next Treatment Increased ambulation distance Focus w/ FWW, review precautions Precautions Lumbar Precautions Log Roll,No Twisting,Limit Bending,Lifting Restriction of 10 lbs,Gait Belt above Incisional Area Recommendations To Nursing Amount of Assist Needed 1 Person Assist Discharge Recommendations PT Discharge Recommendations SNF Rehab Equipment Needed for Home Before FWW if pt goes home Discharge
[2021-01-13] MEDS: METFORMIN HCL 500 MG TABLET PO (16:26)
[2021-01-13 18:10] VITALS: BP 141/89; PULSE 95; RESP 18; TEMP 36.8; O2SAT 96
[2021-01-13] MEDS: SENNOSIDES 8.6 MG TABLET 17.2 MG PO (20:39)
[2021-01-13 20:40] VITALS: BP 140/75; PULSE 94; RESP 18; TEMP 36.8; O2SAT 96
[2021-01-13 23:55] VITALS: BP 128/83; PULSE 88; RESP 17; TEMP 36.2; O2SAT 96
[2021-01-14 04:42] VITALS: BP 149/82; PULSE 91; RESP 17; TEMP 37.1; O2SAT 96
[2021-01-14] MEDS: hydrOXYzine pamoate 25 MG CAPSULE PO ×4 (06:42→21:27)
[2021-01-14] MEDS: HYDROMORPHONE 2 MG TABLET PO ×5 (06:42→20:15)
--- NOTE | 2021-01-14 07:28 | PM.PNPO.1 ---
Subjective Subjective Date Patient Seen: 01/14/21 Time Patient Seen: 07:28 Interval history: Patient is status post lumbar surgery doing fine this morning. No problems overnight. Still having some difficulty ambulating but has noticed improvement. Patient is scheduled to be transferred to SNF on Friday. Exam Vital Signs (past 8 hours): - 01/13/21 23:55 01/14/21 04:42 Temperature 97.2 F L 98.7 F Pulse Rate 88 91 H Respiratory Rate 17 17 Blood Pressure 128/83 149/82 H Pulse Oximetry 96 96 Oxygen Delivery Method Room Air Oxygen Flow Rate 0 Narrative Exam Narrative: Dressings clean and dry. 5/5 dorsiflexion plantar flexion to the toes and ankle. Palpable pedal pulses. Nontender to palpation of the posterior aspect of the calfs. Objective Labs Result Diagrams: 01/11/21 05:47 [facility] Medical History Arthritis Diverticulosis Easy bruisability Neuropathy Pre-diabetes Sciatica Spinal stenosis Stroke (2016) Tubal Surgical History History of bilateral tubal ligation History of carpal tunnel surgery of right wrist Hx of tonsillectomy Previous section Social History household members: none Smoking Status: Current every day smoker alcohol intake: current Assessment & Plan Post-op Postoperative Procedures: Procedures Operation Date: 01/10/21 12:00 Actual Procedure Side Surgeon p L3-4, L4-5 TLIF - Robot Not Applicable Huber Neville MD Postoperative status narrative: Patient doing well after lumbar surgery. Plan is for patient to be transferred to SNF tomorrow.
[2021-01-14 08:30] VITALS: BP 123/84; PULSE 93; RESP 16; TEMP 36.9; O2SAT 95
[2021-01-14] MEDS: FERROUS SULFATE 325 MG TABLET PO ×2 (09:23→20:12)
[2021-01-14] MEDS: DOCUSATE 100 MG CAPSULE PO ×2 (09:23→20:12)
[2021-01-14] MEDS: LORATADINE 10 MG TABLET PO (09:23)
[2021-01-14] MEDS: buPROPion SR 150 MG TAB 300 MG PO ×2 (09:23→20:12)
[2021-01-14] MEDS: FISH OIL 1,000 MG CAPSULE 1000 MG PO (09:23)
[2021-01-14] MEDS: GABAPENTIN 300 MG CAPSULE 600 MG PO ×2 (09:23→20:12)
[2021-01-14] MEDS: NICOTINE 14 PATCH 14 MG TOP (09:24)
[2021-01-14] MEDS: SODIUM CHLORIDE 0.9% FLUSH 10 ML IV ×2 (09:58→20:16)
--- NOTE | 2021-01-14 11:03 | PT-IP ANOTE ---
1040 entered room. 1047 left room. When SPT and DPT entered room, pt was lying supine in bed w/HOB elevated. Pt reported she had just returned to bed after using the bedside commode w/nursing. Pt asked to defer PT until this afternoon. Pt reported that sitting EOB and moving from sit>stand increases the L buttock pain the most and pt needs to prepare herself for the transfers. LEATHA Lopes was directly supervised by DPT Diandra
--- NOTE | 2021-01-14 11:46 | CM.DPC ---
Addendum entered by Katherin Montanez R.N. 01/14/21 14:09: Asked nurse, Kayla, if COVID swab can be obtained today for discharge tomorrow. Original Note: DCP Cont: Met with patient in her room. Asked her if she has copy of her vaccination cards, which patient does have in her purse. Was able to obtain copies of her vaccination card, placed copy behind face sheet. Left Natalie at [facility] a message to see if she may have received auth yet today, and to confirm acceptance tomorrow, Friday. Will need a new COVID swab before discharge. P: DCP to continue to follow. Plan is for [facility] tomorrow as long as [employer] (Jeremy) auth is in place. Katherin Montanez RN/[employer]
[2021-01-14 12:00] VITALS: BP 126/77; PULSE 88; RESP 16; TEMP 36; O2SAT 93
[2021-01-14] MEDS: GABAPENTIN 300 MG CAPSULE PO (12:55)
--- NOTE | 2021-01-14 13:41 | PT.IPTN ---
Current Diagnoses Spondylolisthesis, lumbar region (01/11/21) Spinal stenosis, lumbar region without neurogenic claudication (01/11/21) Surgery Performed Operation Date: 01/10/21 12:00 Actual Procedures p L3-4, L4-5 TLIF - Robot(Not Applicable) - Huber Neville MD Physical Therapy Treatment Note M2 PT-IP Current Condition Start: 01/11/21 10:58 Freq: NEEDED Status: Active Protocol: Document 01/11/21 09:10 AB (Rec: 01/11/21 11:08 AB [id number]) Physical Therapy Current Condition Current Condition Evaluation Date 01/11/21 Treatment Diagnosis s/p L3-4, L4-5 TLIF; difficulty in walking Onset Date 01/10/21 M3 PT-IP Subjective Start: 01/11/21 10:58 Freq: NEEDED Status: Active Protocol: Document 01/14/21 13:38 JG (Rec: 01/14/21 14:36 JG [id number]) Subjective Physical Therapy Visit Type Type Treatment Note Visit Start Time 12:58 Visit Stop Time 13:38 Total Visit Minutes 40 Notes SPT Marianne was directly supervised by DPT Diandra Number of [employer] WORK[employer] Visits 0 Physical Therapy Visit Comments Patient Comments agreeable to do PT. Pt said she knew how to do exercises, bed mob, transfers with ideal body mechanics. Patient Goals Get home to 14 year old dog who is a source of comfort for pt Therapy Pain Assessment Pain When Pain Assessed After Treatment Pain Present Pain Present Pain Reported Location Left Leg Scale Used not quantified Description Cramping,Tightness,With Movement Pain Behaviors Calling Out,Crying,Facial Grimacing,Guarding,Moaning, Wincing Pain Management Techniques Modification of Treatment,Re- positioning,Timing of Activity with Medications M4 PT-IP Mobility and Gait Start: 01/11/21 10:58 Freq: NEEDED Status: Active Protocol: Document 01/14/21 13:38 JG (Rec: 01/14/21 14:36 JG [id number]) PT-Bed Mobility Assessment Rolling Type of Rolling Log Rolling,Roll to Right,Roll to Left Level of Assist Moderate Assistance,1 Person Assistance,2 Person Assistance Supine to Sit Supine to Sit Moderate Assistance,1 Person Assistance,Head of Bed Elevated,Bedrails Sit to Supine Sit to Supine Moderate Assistance,1 Person Assistance,Head of Bed Elevated,Bedrails Scooting Scooting to Edge of Bed Maximum Assistance Scooting Up and Down in Bed Maximum Assistance PT-Transfer Assessment Sit to and From Stand Sit to and from Stand Moderate Assistance,1 Person Assistance,Use of Upper Extremities Equipment Transfer Assistive Device Gait Belt,Front Wheeled Walker Orthotic/Prosthetic Devices or Brace: No Transfers Transfer Destination Bed,Bedside Commode Transfer Technique Pt ambulated w/ FWW Transfer Ability Level of Assist Moderate Assistance,1 Person Assistance,2 Person Assistance ,Use of Upper Extremities Comments Mobility Comments Pt in bed upon arrival w/HOB elevated. Pt attempted to instruct SPT and PT on how she was going to move from supine to EOB to standing. However, max cueing and assist was required in order to help pt roll, move supine<>EOB without lumbar twisting. Max cueing was also required for sit<> stand. Pt demostrated little ability to hip hinge and roll whole body together w/o lumbar twist. Pt completed amb in the room to max distance she felt she could walk. Pt was very apprehensive to practice log rolling, bridging, hip hinge, weight shifting as she verbalized fear of pain. Pt req bed to be elevated while stand>sit as she verbalized she could not squat down to bed. Gait Assessment Gait Gait Assistance Required: Minimum Assistance,1 Person Assist Distance (Feet) 20 Able to Maintain Weight Bearing Status Yes During Gait Assistive Devices Assistive Device Gait Belt,Front Wheeled Walker Orthotic/Prosthetic Devices or Brace: No Gait Deviations General Gait Pattern Decreased Stride Length, Decreased Feet Clearance Factors Limiting Gait Function Factors Limiting Gait Function Decreased Sensation,Pain Comments Gait Comments Please refer to mobility section for details. PT-Balance Assessment Sitting Balance and Reactions Static Sitting Balance Ability Good Dynamic Sitting Balance Ability Fair Standing Balance and Reactions Static Standing Balance Ability Good Dynamic Standing Balance Ability Fair Device Used FWW M5 PT-IP Objective Assessments Start: 01/11/21 10:58 Freq: NEEDED Status: Active Protocol: Document 01/11/21 09:10 AB (Rec: 01/11/21 11:08 AB [email or web address]) Orientation Orientation/Cognition Level of Alertness Alert Orientation Name,Place,Situation Language Function Ability No Deficits Noted Safety Awareness Decreased Safety Awareness Memory Description Short Term Impaired Gross Range of Motion Lower Extremity ROM Assessment Within Functional Limits Strength Comments Strength Comments LLE: 4-/5 RLE 3+/5 Sensation Assessment Sensation Gross Sensation Right LE Impaired,Left LE Impaired Sensation Description Numbness,Tingling Comments Sensation Comments chronic B feet numbness/ tingling; pt stated that she has neuropathy Muscle Tone Muscle Tone WNL Yes M6 PT-IP Treatment Start: 01/11/21 10:58 Freq: NEEDED Status: Active Protocol: Document 01/14/21 13:38 JG (Rec: 01/14/21 14:36 J [id number]) Physical Therapy Treatment Education Education Provided Precautions,Safety Other Treatments Other Treatment Performed Bed: rolling practice (full roll, partial range), bridging , scooting L/R and up/down Standing: lateral weight shift , hip hinge M7 PT-IP Assessment and Plan Start: 01/11/21 10:58 Freq: NEEDED Status: Active Protocol: Document 01/14/21 13:38 JG (Rec: 01/14/21 14:36 J [id number]) PT Summary Assessment and Plan Potential Rehabilitation Potential Good Status of Condition at Evaluation Evolving Summary Impairments Pain,ROM,Strength,Balance, Coordination,Sensation,Tone, Cognition,Bed Mobility, Transfers,Gait,Activity Tolerance Progress Towards Goals Slow Progress due to Pain Assessment Summary Pt continues to have high apprehension about movement in general while also voicing the need to move as her body is feeling stiff and L buttock sore. Pt demostrates poor body awareness during movement as she was unaware she twists during rolling and supine<> sit. Pt was able to amb in room and appears to be limited due to fear of future pain. Bed mobility practice was completed today with poor ability to bridge or bridge and shift hips. Continued bed mob and sit<>stand will be greatly benefical for lumbar safety and decreased pain during movement. Goals Bed Mobility Goal Standby Assistance Transfer Goal Standby Assistance,Front Wheeled Walker Gait Goal Standby Assistance,Front Wheel Walker Gait Distance 150 Other Goals up/down 1 step using FWW SBA Days to Meet Goals 10 Frequency of Treatment Frequency Of Treatment Twice a Day Treatment Plan Physical Therapy Treatment Plan Bed Mobility Training,Transfer Training,Gait Training, Therapeutic Exercise,Balance Retraining,Post Op Education, Discharge Planning,Hot or Cold Pack,Neuromuscular Re-ed, Coordination Retraining,Manual Therapy Other Recommendations and Next Treatment Increased ambulation distance Focus w/ FWW, review precautions Precautions Lumbar Precautions Log Roll,No Twisting,Limit Bending,Lifting Restriction of 10 lbs,Gait Belt above Incisional Area Recommendations To Nursing Amount of Assist Needed 1 Person Assist Discharge Recommendations PT Discharge Recommendations SNF Rehab Equipment Needed for Home Before FWW if pt goes home Discharge Treatment was provided by Marianne Hilton, SPT and supervised by Diandra Reynolds, PT. I personally reviewed this note and agree with its contents.
[2021-01-14 16:30] VITALS: BP 109/66; PULSE 88; RESP 18; TEMP 37.2; O2SAT 95
[2021-01-14] MEDS: METFORMIN HCL 500 MG TABLET PO (16:52)
[2021-01-14 20:00] VITALS: BP 111/74; PULSE 89; RESP 18; TEMP 36.1; O2SAT 94
[2021-01-14] MEDS: SENNOSIDES 8.6 MG TABLET 17.2 MG PO (20:12)
--- NOTE | 2021-01-14 22:56 | PC.NURSE ---
Addendum entered by Jessica Benavides R.N. 01/15/21 06:18: States she believes she has a UTI as frequently feeling urge to urinate but denies any dysuria. Bladder scan showing 503cc in bladder but then was incontinent of additional urine after which bladder scan is showing 250cc. Patient refuses to get out of bed to [facility] to try to empty bladder more completely. Medicated with dilaudid + vistaril for 8/10 pain and states she will try getting up after pain medication takes hold. Original Note: Patient is alert and oriented. Breath sounds diminished but CTA with RA sat of 94%. HRR. Denied nausea. BT present and is passing flatus. Has been voiding mostly incontinent and is wearing a brief; denied dysuria, frequency or urgency. Is able to turn self in bed. Gait not assessed but previous RN reported patient is out of bed with walker and 2 assists. Complains of back pain radiating into buttock and down legs posteriorly; medicated with Dilaudid at 2014 and vistaril at 2126. Dressing to back is CDI. Refused to wear SCD's so reminded to ankle wave and patient verbalized understanding. Has neuropathy in bilateral feet and left hand unchanged form pre-op. Fall risk score is high and bed alarm is activated.
[2021-01-15] MEDS: hydrOXYzine pamoate 25 MG CAPSULE PO ×2 (02:10→06:12)
[2021-01-15] MEDS: HYDROMORPHONE 2 MG TABLET PO ×2 (02:10→06:12)
--- NOTE | 2021-01-15 07:42 | PM.DS.1 ---
History of Present Illness History of Present Illness Date Patient Seen: 01/15/21 Time Patient Seen: 07:43 Chief complaint: Back pain s/p TLIF Narrative: Patient is complaining of [id number] low back pain this morning. She is also concerned about urination. She is experiencing incontinence, but this is questionable if it is due to her ability to mobilize and not. She is planning on going to a SNF today. She is complaining of muscle spasms and like her muscle relaxer change. Discharge Providers Provider Date of admission: 01/11/21 13:58 Discharge Date: 01/15/21 Primary care physician: Juventino Coe MD Consults: 01/01/21 13:43 Consult to Respiratory Therapy Evaluate & Treat Comment: Current 1PPD smoker, would like a nicotine patch Physician Instructions: Evaluate and treat 01/10/21 18:33 Consult to Occupational Therapy Evaluate & Treat Comment: Physician Instructions: Evaluate and treat Consult to Physical Therapy Evaluate & Treat Comment: Physician Instructions: Evaluate and Treat Discharge provider: Nalini Curry PA-C Summary Hospital Course Discharge Diagnosis: 1. L3-4, L4-5 spondylolisthesis 2. Lumbar spinal stenosis with neurogenic claudication Hospital Course: Date of procedure: 01/10/21 Time of procedure: 13:00 Procedure & Clinicians Procedure: 1. L3-4, L4-5 Postero-lateral and posterior interbody fusion 2. L3-4, L4-5 interbody cage placement. 3. L3-4, L4-5 decompressive laminectomy with bilateral facetecomies 4. L3-4, L4-5 Posterior segmental instrumentation 5. [place] of bone marrow from iliac crest 6. Utilization of microsurgical technique and operating microscope 7. Robotic navigation assisted surgery Same procedure as scheduled: Yes Indications: Patient has been having chronic back pain and worsening lumbar radiculopathy. Patient failed multiple conservative management with worsening pain weakness and numbness in her lower extremity.? Patient has been having difficulty performing activity of daily living.? After discussing risks benefits of treatment options, patient elected proceed with surgery. Surgeon: Huber Neville [employer] Supervisor: Viraj Rouse Click Yes if Unassisted: No Anesthesia Type: General Operative Notes Closure Type: primary Specimen(s): none sent Prosthetic devices, grafts, tissues, transplants, or devices: Globus CREO MIS screws, Rise cages Applied: catheter Estimated Blood Loss (mL): 150 Blood products transfused: none Status at Discharge Cognitive/behavioral status at discharge: oriented Functional status at discharge: uses cane/walker Overall status at discharge: patient is progressing back to baseline Exam Vital Signs (past 8 hours): Oxygen Delivery Method Room Air Oxygen Flow Rate 0 Narrative Exam Narrative: 6-year-old female, resting comfortably in bed, no acute distress. In dressing is clean, dry, intact. Bilateral lower extremities: Motor function is grossly intact, sensation is grossly intact to light touch, calves are soft, nontender to palpation. Objective Labs Result Diagrams: 01/11/21 05:47 [facility] Medical History Arthritis Diverticulosis Easy bruisability Neuropathy Pre-diabetes Sciatica Spinal stenosis Stroke (2016) Tubal Surgical History History of bilateral tubal ligation History of carpal tunnel surgery of right wrist Hx of tonsillectomy Previous section Social History household members: none Smoking Status: Current every day smoker alcohol intake: current Discharge Assessment & Plan Assessment and Plan Assessment: Patient progressing slower than expected Plan of Treatment: [facility]charge [facility]. -change muscle relaxer to methocarbamol -ordered a UA due to new incontinence -limit bending, lifting, twisting. Discharge Plan Discharge Plan Patient Disposition: SNF Transfer to: [facility] Under care of provider: Dr. Neville Transportation: [facility] I certify the postop hospital penitentiary care is medically necessary on a continuing basis for any conditions for which he/ she received care during this hospitalization.: Yes The receiving facility has agreed to accept transfer and provide medical treatment.: Yes Discharge orders & Medications Prescriptions: New acetaminophen 325 mg Tablet 650 mg PO Q6HR PRN (Reason: Pain, Mild (1-3)) Qty: 60 0RF hydromorphone 2 mg Tablet 2 mg PO Q3H PRN (Reason: Pain, Severe (7-10)) Qty: 40 0RF docusate sodium 100 mg Capsule 100 mg PO BID Qty: 20 0RF oxycodone 5 mg Tablet 10 mg PO Q3HR PRN (Reason: Pain, Severe (7-10)) Qty: 30 0RF methocarbamol 500 mg Tablet 500 mg PO QID PRN (Reason: Muscle Spasm) Qty: 60 0RF sennosides [senna] 8.6 mg Tablet 17.2 mg PO BEDTIME Qty: 30 0RF nicotine 14 mg/24 hr Patch 24 Hour 14 mg topical DAILY Qty: 28 0RF magnesium hydroxide [Milk of Magnesia] 400 mg/5 mL Suspension 30 ml PO DAILY PRN (Reason: Constipation) Qty: 355 0RF alum-mag hydroxide-simeth [Mag-Al Plus] 200-200-20 mg/5 mL Suspension 30 ml PO QID PRN (Reason: Dyspepsia) Qty: 30 0RF aspirin 81 mg tablet,delayed release (DR/EC) 81 mg PO DAILY Qty: 30 0RF Fleet Enema 19-7 gram/118 mL Enema 29.5 ml NM PRN PRN (Reason: Constipation) Qty: 1197 0RF Continued metformin 500 mg Tablet 500 mg PO QPM 0RF bupropion HCl 150 mg Tablet Sustained-Release 12 Hr 300 mg PO BID 0RF quetiapine 100 mg Tablet 50 mg PO DAILY PRN (Reason: Sleep) 0RF Label Comments: seroquel ferrous sulfate [Iron (ferrous sulfate)] 325 mg (65 mg iron) Tablet 325 mg PO BID 0RF gabapentin 300 mg Capsule 1,500 mg PO SEEINSTR 0RF Rx Instructions: 600 mg bid, 300mg midday omega-3 acid ethyl esters 1 gram Capsule 1 cap PO DAILY 0RF levocetirizine 5 mg Tablet 5 mg PO QPM 0RF Discontinued aspirin 81 mg Tablet,Delayed Release (Dr/Ec) 81 mg PO DAILY 0RF naproxen 500 mg Tablet 500 mg PO TID 0RF Follow up/Referrals: Juventino Coe MD [Primary Care Provider] - Huber Neville MD [Physician] - (2 weeks) Discharge Health Status Multidrug resistant organism: No MDRO Diet/Activity/Treatments Diet: Carb-consistent/Diabetic Activity: Limit bending, lifting, twisting Cold/Heat Therapy: Ice to back as needed Skin/Wound/Dressing Care Report to your healthcare provider any signs of infection, such as:: chills, fever, increased pain, unusual drainage and unusual redness Dressing: Keep dressing clean and dry Special Rehabilitation Services Reason for rehabilitation: Post-operative therapy Rehab type: Physical therapy and Occupational therapy Visit Report/Discharge Packet Instructions: DI for Prescription Opioid Use, DI for Transforaminal Lumbar Interbody Fusion Stand Alone Forms: Surgery Discharge Discharge Data Primary Care Provider: Juventino Coe Attending Provider: Huber Neville
[2021-01-15 08:00] VITALS: BP 112/73; PULSE 77; RESP 16; TEMP 36.4; O2SAT 94
[2021-01-15] MEDS: methocarbamoL 500 MG TABLET PO (08:36)
[2021-01-15] MEDS: GABAPENTIN 300 MG CAPSULE 600 MG PO (08:36)
[2021-01-15] MEDS: FERROUS SULFATE 325 MG TABLET PO (08:36)
[2021-01-15] MEDS: NICOTINE 14 PATCH 14 MG TOP (08:37)
[2021-01-15] MEDS: DOCUSATE 100 MG CAPSULE PO (08:37)
[2021-01-15] MEDS: buPROPion SR 150 MG TAB 300 MG PO (08:48)
[2021-01-15] MEDS: LORATADINE 10 MG TABLET PO (08:48)
[2021-01-15] MEDS: FISH OIL 1,000 MG CAPSULE 1000 MG PO (08:48)
[2021-01-15 09:06] LABS: COVID19 -Nasal RAPID Negative (Negative)
--- NOTE | 2021-01-15 09:39 | PT.IPTN ---
Current Diagnoses Spondylolisthesis, lumbar region (01/10/21) Spinal stenosis, lumbar region without neurogenic claudication (01/10/21) Surgery Performed Operation Date: 01/10/21 12:00 Actual Procedures p L3-4, L4-5 TLIF - Robot(Not Applicable) - Huber Neville MD Physical Therapy Treatment Note M2 PT-IP Current Condition Start: 01/11/21 10:58 Freq: NEEDED Status: Active Protocol: Document 01/11/21 09:10 AB (Rec: 01/11/21 11:08 AB [id number]) Physical Therapy Current Condition Current Condition Evaluation Date 01/11/21 Treatment Diagnosis s/p L3-4, L4-5 TLIF; difficulty in walking Onset Date 01/10/21 M3 PT-IP Subjective Start: 01/11/21 10:58 Freq: NEEDED Status: Active Protocol: Document 01/15/21 09:39 AW (Rec: 01/15/21 10:18 AW [id number]) Subjective Physical Therapy Visit Type Type Treatment Note Visit Start Time 09:21 Visit Stop Time 09:39 Total Visit Minutes 18 Notes SPT Marianne provided mobility assist. Physical Therapy Visit Comments Patient Comments Pt is tearful and frustrated. I didn't know it would hurt this bad. Patient Goals Preparing to d/c to SNF today and hoping to get home to her dog soon. Therapy Pain Assessment Pain When Pain Assessed During Mobility Pain Present Pain Present Pain Reported Location Back Scale Used not quantified Description Burning Pain Behaviors Crying,Wincing Pain Management Techniques Modification of Treatment, Timing of Activity with Medications M4 PT-IP Mobility and Gait Start: 01/11/21 10:58 Freq: NEEDED Status: Active Protocol: Document 01/15/21 09:39 AW (Rec: 01/15/21 10:18 AW [id number]) PT-Bed Mobility Assessment Rolling Type of Rolling Log Rolling,Roll to Right Level of Assist Moderate Assistance Sit to Supine Sit to Supine Moderate Assistance Scooting Scooting Up and Down in Bed Maximum Assistance PT-Transfer Assessment Sit to and From Stand Sit to and from Stand Moderate Assistance,1 Person Assistance,Use of Upper Extremities Equipment Transfer Assistive Device Gait Belt,Front Wheeled Walker Orthotic/Prosthetic Devices or Brace: No Transfers Transfer Destination Bed Transfer Technique Stand Step Pivot Transfer Ability Level of Assist Moderate Assistance,1 Person Assistance,2 Person Assistance ,Use of Upper Extremities Comments Mobility Comments Pt was sitting on the commode as PT and SPT arrived. PT educated pt on log roll technique with demonstration. Pt complained on severe numbness LLE. PT provided PROM left foot, ankle, and hip and pt stated symptoms improved. She stood mod A x 1. PT provided pericare assist as pt stood ~2 minutes. She used FWW to transfer to the bed. Bed was raised for pt to practice hip hinge form and then lowered once pt was seated. Pt attempted to reverse log roll, going to her right elbow as PT lifted her legs to the bed. She was unable to maintain sidelying and rotated backward at her trunk in spite of education and cues. Pt needed assist to reposition herself in the bed. She was able to move her shoulders toward middle of bed and needed assist to bridge her hips and move toward the middle. Pt was left with call light and tray table in reach. Gait Assessment Comments Gait Comments Pt refused ambulation this date. M5 PT-IP Objective Assessments Start: 01/11/21 10:58 Freq: NEEDED Status: Active Protocol: Document 01/11/21 09:10 AB (Rec: 01/11/21 11:08 AB [id number]) Orientation Orientation/Cognition Level of Alertness Alert Orientation Name,Place,Situation Language Function Ability No Deficits Noted Safety Awareness Decreased Safety Awareness Memory Description Short Term Impaired Gross Range of Motion Lower Extremity ROM Assessment Within Functional Limits Strength Comments Strength Comments LLE: 4-/5 RLE 3+/5 Sensation Assessment Sensation Gross Sensation Right LE Impaired,Left LE Impaired Sensation Description Numbness,Tingling Comments Sensation Comments chronic B feet numbness/ tingling; pt stated that she has neuropathy Muscle Tone Muscle Tone WNL Yes M6 PT-IP Treatment Start: 01/11/21 10:58 Freq: NEEDED Status: Active Protocol: Document 01/15/21 09:39 AW (Rec: 01/15/21 10:18 AW [id number]) Physical Therapy Treatment Education Education Provided Precautions,Safety Other Treatments Other Treatment Performed Diaphragmatic breathing in supine to promote physiologic quieting. M7 PT-IP Assessment and Plan Start: 01/11/21 10:58 Freq: NEEDED Status: Active Protocol: Document 01/15/21 09:39 AW (Rec: 01/15/21 10:18 AW [id number]) PT Summary Assessment and Plan Potential Rehabilitation Potential Good Status of Condition at Evaluation Evolving Summary Impairments Pain,ROM,Strength,Balance, Coordination,Sensation,Tone, Cognition,Bed Mobility, Transfers,Gait,Activity Tolerance Progress Towards Goals Slow Progress due to Pain,Slow Progress due to Activity Tolerance Assessment Summary Pt is highly anxious and needs encouragement to mobilize. She requires vigilance and max assist/cues to maintain precautions. She has limited activity tolerance. Pt requires SNF rehab to improve strength and functional mobility. Goals Bed Mobility Goal Standby Assistance Transfer Goal Standby Assistance,Front Wheeled Walker Gait Goal Standby Assistance,Front Wheel Walker Gait Distance 150 Other Goals up/down 1 step using FWW SBA Days to Meet Goals 10 Frequency of Treatment Frequency Of Treatment Twice a Day Treatment Plan Physical Therapy Treatment Plan Bed Mobility Training,Transfer Training,Gait Training, Therapeutic Exercise,Balance Retraining,Post Op Education, Discharge Planning,Hot or Cold Pack,Neuromuscular Re-ed, Coordination Retraining,Manual Therapy Other Recommendations and Next Treatment Increased ambulation distance Focus w/ FWW, review precautions Precautions Lumbar Precautions Log Roll,No Twisting,Limit Bending,Lifting Restriction of 10 lbs,Gait Belt above Incisional Area Recommendations To Nursing Amount of Assist Needed 1 Person Assist Discharge Recommendations PT Discharge Recommendations SNF Rehab Equipment Needed for Home Before FWW if pt goes home Discharge
--- NOTE | 2021-01-15 10:02 | CM.DPC ---
DCP Cont: Patient is to be discharged to [facility] today. Orders were completed by ortho Nalini RETANA. COVID swab was done this morning. Had to confirm a medication, Seroquel, as patient takes it for sleep, but not all the time. Updated Natalie at [facility], for patient has not taken it since the . Faxed and emailed over medication orders, RX, DC Summary, and vaccination information, as well as COVID results over to [facility]. Natalie had obtained the auth from her insurance. documentation supervisor time is set for 10:45. Updated patient. P: Patient is to be discharged to [facility] today, pharmacy picking tech at 1030. Nurse and white board is updated. Katherin Montanez RN/[employer]
[2021-01-15 10:05] LABS: Appearance Urine UA SL CLOUDY; Bilirubin Urine UA NEGATIVE (NEGATIVE); Color Urine UA YELLOW; Glucose Urine UA NEGATIVE (Negative); Ketones Urine UA NEGATIVE (NEGATIVE); Leukocyte Esterase Urine UA 2+ (NEGATIVE); Nitrite Urine UA POSITIVE (Negative); Occult Blood Urine UA TRACE-LYSED (Negative); Protein Urine UA NEGATIVE (Negative); Specific Gravity Urine UA 1.015 (1.000-1.035); Urobilinogen Urine UA 0.2 E.U./dL (0.2)
[2021-01-15 10:16] LABS: Bacteria Urine Many (>30); RBC Urine 1-5/HPF (0-5/HPF); Squamous Epithelial Cell Urine 1-5 /HPF (0-5/HPF); WBC Urine 30-100/HPF (0-5/HPF)
[2021-01-15 10:17] LABS: Culture Indicated Urine Specimen Cultured
--- NOTE | 2021-01-15 11:09 | PC.NURSE ---
Pt is packed up and ready for discharge to [facility]. Belongings sent with Pt and transport team. Pt transferred to w/c and out via w/c with Transport personnel. Called report to Natalie at [facility] and full Pt status.
== END 2021-01-15 11:40 | DRG 454 ==
LOC: AC 01-11 09:24 → OR 01-15 08:14 → AC 01-15 08:14
PROVIDERS: Physician Assistant; Admitting Provider Orthopaedic Surgery Orthopaedic Surgery of the Spine; PCP Family Medicine; Referring Provider Orthopaedic Surgery Orthopaedic Surgery of the Spine; Visit Provider Orthopaedic Surgery Orthopaedic Surgery of the Spine
PROC: 0SG10AJ Fusion of 2 or more Lumbar Vertebral Joints with Interbody Fusion Device, Posterior Approach, Anterior Column, Open Approach (ICD-10-PCS; principal; 2021-01-10 12:00)
DX: M43.16 Spondylolisthesis, lumbar region (principal); N39.0 Urinary tract infection, site not specified; M48.062 Spinal stenosis, lumbar region with neurogenic claudication; M54.16 Radiculopathy, lumbar region; F17.200 Nicotine dependence, unspecified, uncomplicated; R73.03 Prediabetes; Z20.822 Contact with and (suspected) exposure to COVID-19
CPT/HCPCS: 36415; 72100; 76000; 81001; 82962; 85014; 85018; 87077; 87086; 87186; 87635; 97110; 97116; 97162; 97165; 97530; 97535; 99406; C1776; C9803; A9270; C9290; J0131; J0171; J0690; J1100; J1170; J2060; J2405; J2704; J3010

== ENCOUNTER → 2021-08-11 12:57 | Outpatient (CLI) | payer OTHER, MEDICAID, SELFPAY ==
[2021-01-10 20:47] VITALS: BMI 34.1
--- NOTE | 2021-08-11 | DI.MRI.S_ITS ---
PROCEDURE: MR LUMBAR SPINE WO CON INDICATIONS: Spinal stenosis, lumbar region without neurogenic TECHNIQUE: Noncontrast sagittal T1 spin echo and T2 fast echo, sagittal STIR, and T2 fast spin echo through the lumbar spine. In cases with scoliosis, additional coronal T2 fast spin echo may be performed. COMPARISON: [facility], CR, XR LUMBAR SPINE WITH OLBIQUES PLUS FLEXION EXTENSION, 11/06/2020, 13:15. [facility] Outside Film, MR, MR LUMBAR SPINE WITHOUT CONTRAST, 10/03/2020, 13:34. FINDINGS: Image quality: Excellent. Alignment and Curvature: Patient is status post L3-L5 posterior fixation and discectomy. Grade 1 L4 on L5 anterolisthesis is similar in extent to the comparison study dated October 03, 2020. Bone Marrow: Marrow signal is homogeneous throughout. Reactive endplate changes are present at multiple levels. Spinal Cord: Conus medullaris terminates at the L1. level. Visualized cord demonstrates normal signal and size. Paraspinous Soft Tissues: No paravertebral masses. T12-L1: Moderate disc desiccation and height loss. Broad-based disc bulge. No canal stenosis. No neural foraminal narrowing. L1-L2: Severe disc desiccation and height loss. Broad-based disc bulge. Severe facet ligamentum flavum hypertrophy. Moderate canal stenosis. Moderate right and mild left neural foraminal stenosis. Findings are similar in extent to the study dated October 03, 2020. L2-L3: Severe disc desiccation and height loss. Broad-based disc bulge. Severe facet and ligamentum flavum hypertrophy. Severe canal stenosis. Moderate left and mild right neural foraminal stenosis. There is a small posterior focal high-intensity zone. Findings are similar in extent to the prior study. L3-L4: Status post posterior fixation and discectomy. No canal stenosis. Mild bilateral neural foraminal stenosis. L4-L5: Status post fixation and discectomy. Severe facet sclerosis. Moderate canal stenosis. Moderate to severe bilateral neural foraminal stenosis with flattening of the bilateral exiting nerve roots. This is similar in appearance to the prior study. L5-S1: Mild disc desiccation and height loss. Severe facet sclerosis. Broad-based disc bulge. No canal stenosis. Severe bilateral foraminal narrowing with flattening of the exiting nerve roots. Findings are similar to the prior study. IMPRESSION: 1. Postoperative change of the lower lumbar spine. 2. Overall similar extent of disc desiccation, height loss, broad-based disc bulges, and canal stenosis. Moderate canal stenosis is redemonstrated at L1-2 and L4-5 and severe canal stenosis is redemonstrated at L2-3. 3. Severe bilateral foraminal stenosis at L5-S1 and L4-5 with flattening of the exiting nerve roots. 4. 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 Dictated by: Dorita Smart M.D. on 08/14/2021 at 8:17 Approved by: Dorita Smart M.D. on 08/14/2021 at 8:27
== END ==
PROVIDERS: PCP Family Medicine; Referring Provider Orthopaedic Surgery Orthopaedic Surgery of the Spine; Visit Provider Orthopaedic Surgery Orthopaedic Surgery of the Spine
DX: M48.061 Spinal stenosis, lumbar region without neurogenic claudication (principal); M51.86 Other intervertebral disc disorders, lumbar region; M51.36 Other intervertebral disc degeneration, lumbar region; M51.26 Other intervertebral disc displacement, lumbar region
CPT/HCPCS: 72148

== ENCOUNTER → 2021-11-28 12:57 | Outpatient (CLI) | payer OTHER, MEDICAID, SELFPAY ==
[2021-01-10 20:47] VITALS: BMI 34.1
--- NOTE | 2021-11-28 12:59 | DI.CT.S_ITS ---
PROCEDURE: CT SOFT TISSUE NECK W CON INDICATIONS: ORAL LESION/CERVICAL LYMPHADENOPATHY TECHNIQUE: After the administration of intravenous contrast, 3.0 mm axial sections acquired from the sella to the aortic arch. Additional oblique axial 3.0 mm sections acquired through the pharynx. 3 mm thick coronal and sagittal reformats were generated. For radiation dose reduction, the following was used: automated exposure control. COMPARISON: [facility] Outside Film, MR, MR CERVICAL SPINE WITHOUT CONTRAST, 10/03/2020, 12:51. [facility] Outside Film, CT, CT CERVICAL SPINE WITHOUT CONTRAST, 07/29/2016, 17:09. FINDINGS: Image quality: Excellent. Lymph nodes: No enlarged lymph nodes seen throughout the neck. Borderline prominent lymph nodes can be seen on both sides, however. Vessels: Visualized vasculature appears patent. Neck spaces: In this patient with this given history, scrutiny is given to an oral lesion. None can be seen. The oropharynx, nasopharynx, and pharynx demonstrate no mucosal lesions. The vocal cords, false vocal cords, pyriform sinuses, epiglottis, vallecula, and tongue base all appear normal. Extramucosal spaces appear unremarkable. Glands: The parotid and submandibular glands appear normal. Thyroid gland demonstrates no significant abnormality. Miscellaneous: Visualized brain and orbits appear normal. Lung apices appear clear. Superficial soft tissues appear normal. Bones: No suspicious bony lesions. Visualized sinuses and mastoids appear unremarkable. At least moderate cervical spine degenerative changes are seen. IMPRESSION: Nor lesion is seen. No enlarged lymph nodes are seen. At least moderate cervical spine degenerative changes are seen. Dictated by: Ady Kaiser M.D. on 11/28/2021 at 15:34 Approved by: Ady Kaiser M.D. on 11/28/2021 at 15:36
== END ==
PROVIDERS: PCP Family Medicine; Referring Provider Nurse Practitioner; Visit Provider Nurse Practitioner
DX: K13.70 Unspecified lesions of oral mucosa (principal); R59.0 Localized enlarged lymph nodes
CPT/HCPCS: 36415; 70491; 80053; 85651; 86140; Q9967

== ENCOUNTER → 2021-11-28 13:06 | Outpatient (CLI) | payer OTHER, MEDICAID, SELFPAY ==
[2021-01-10 20:47] VITALS: BMI 34.1
[2021-11-28 15:45] LABS: Alanine Aminotransferase 26 IU/L (<35); Albumin 4.1 g/dL (3.5-5.0); Albumin Globulin Ratio 1.1 (1.0-2.8); Alkaline Phosphatase 89 U/L (38-126); Aspartate Aminotransferase 38 IU/L (14-36); BUN Creatinine Ratio 11.4 (6-22); Bilirubin Total 0.6 mg/dL (0.2-1.3); Blood Urea Nitrogen 8 mg/dL (7-17); C-Reactive Protein Quant 4.4 mg/dL (<1.0); Calcium 10.1 mg/dL (8.4-10.2); Carbon Dioxide 29 mmol/L (22-32); Chloride 99 mmol/L (98-107); Estimated Glomerular Filt Rate > 60 mL/min (>60); Globulin 3.9 g/dL (1.7-4.1); Glucose 89 mg/dL (80-110); HEMOLYSIS < 15 (0-50); Potassium 4.1 mmol/L (3.4-5.1); Sodium 140 mmol/L (137-145)
[2021-11-28 18:35] LABS: Erythrocyte Sedimentation Rate 56 MM/HR (0-20)
== END ==
PROVIDERS: PCP Family Medicine; Referring Provider Family Medicine; Visit Provider Family Medicine
DX: R59.0 Localized enlarged lymph nodes (principal)
CPT/HCPCS: 36415; 80053; 85651; 86140

== ENCOUNTER 2021-12-08 16:56 | Emergency (ER) | payer OTHER, MEDICAID, SELFPAY ==
[2021-01-10 20:47] VITALS: BMI 34.1
[2021-12-08] VITALS (9 sets, daily range): BP systolic 132–163; BP diastolic 81–89; PULSE 76–91; RESP 16–20; TEMP 36.9–37.1; O2SAT 95–97; BMI 31.3
--- NOTE | 2021-12-08 19:37 | PC.NURSE ---
Pt reports left lower abscess on her jaw that began labor of this year. She has been seen at [facility] in past 2 days. Today the [facility] lanced and drained her abscess. Pt given 2 IM injections of abx in past two days. Pt denies SOB, difficulty swallowing or sore throat. Pt reports decreased range of motion with opening her mouth. Pt also reporting she is unable to place in her bottom dentures.
--- NOTE | 2021-12-08 19:43 | ED_ITS ---
HPI - Skin/Abscess/Foreign Bdy General Chief complaint: Skin/Abscess/Foreign Body Stated complaint: abscesss on neck Time Seen by Provider: 12/08/21 18:44 Source: patient Mode of arrival: Ambulatory Limitations: no limitations History of Present Illness HPI narrative: This is a 61-year-old female with prediabetes, chronic tobacco abuse, chronic back pain and abscess under the left chin which she states has been present with small and skin infection since labor day but has been getting progressively worse. She denies fevers or chills, she states there was a lot of pressure which improved after the abscess was drained today and a loop drain is in place and patient is draining purulent fluid. She states quite a bit came out it has been continuing to drain. She states there is redness that has been present but isn't progressing. She comes today because they had asked her she states they bagged her to come to the ER to be evaluated as there is a small area of discoloration of the opening that is purplish and new. Patient denies any airway impingement or change of voice she is hoarse but states that is her normal she does not feel like it is pushing on her or affecting her oropharynx. She denies new cough, no nausea or vomiting, no chest pain or shortness of breath, no other GI or urinary symptoms. She states she is off metformin now because she lost weight after having back surgery and being or ambulatory and dropping 20 lb. She denies any known drug allergies. She does continue to smoke, occasional alcohol, no illicit. No IV drugs. She states this area started with some small blistering spots on the inside of her lip. Related Data Home Medications Medication Instructions Recorded Confirmed bupropion HCl 150 mg tablet,12 hr 300 mg PO BID 01/01/21 01/10/21 sustained-release ferrous sulfate 325 mg (65 mg 325 mg PO BID 01/01/21 01/10/21 iron) tablet (Iron (ferrous sulfate)) gabapentin 300 mg capsule 1,500 mg PO SEEINSTR 01/01/21 01/10/21 levocetirizine 5 mg tablet 5 mg PO QPM 01/01/21 01/10/21 metformin 500 mg tablet 500 mg PO QPM 01/01/21 01/10/21 omega-3 acid ethyl esters 1 gram 1 cap PO DAILY 01/01/21 01/10/21 capsule quetiapine 100 mg tablet 50 mg PO DAILY PRN Sleep 01/01/21 01/10/21 Previous Rx's Medication Instructions Recorded acetaminophen 325 mg tablet 650 mg PO Q6HR PRN Pain, Mild 01/13/21 (1-3) #60 tabs docusate sodium 100 mg capsule 100 mg PO BID #20 caps 01/13/21 hydromorphone 2 mg tablet 2 mg PO Q3H PRN Pain, Severe 01/13/21 (7-10) #40 tabs oxycodone 5 mg tablet 10 mg PO Q3HR PRN Pain, Severe 01/13/21 (7-10) #30 tabs aluminum-mag hydroxide-simethicone 30 ml PO QID PRN Dyspepsia #30 mL 01/15/21 200 mg-200 mg-20 mg/5 mL oral susp (Mag-Al Plus) aspirin 81 mg tablet,delayed 81 mg PO DAILY #30 tabs 01/15/21 release magnesium hydroxide 400 mg/5 mL 30 ml PO DAILY PRN Constipation 01/15/21 oral suspension (Milk of Magnesia) #355 mL methocarbamol 500 mg tablet 500 mg PO QID PRN Muscle Spasm #60 01/15/21 tabs nicotine 14 mg/24 hr daily 14 mg topical DAILY #28 ea 01/15/21 transdermal patch sennosides 8.6 mg tablet (senna) 17.2 mg PO BEDTIME #30 tabs 01/15/21 sodium phosphates 19 gram-7 29.5 ml SD PRN PRN Constipation 01/15/21 gram/118 mL enema (Fleet Enema) #1,197 mL clindamycin HCl 300 mg capsule 300 mg PO QID #40 caps 12/08/21 Allergies Allergy/AdvReac Type Severity Reaction Status Date / Time No Known Drug Allergies Allergy Verified 01/10/21 11:20 Review of Systems Review of Systems ROS Unobtainable: All systems reviewed & are unremarkable except as noted in HPI and below Patient History Medical History Arthritis Diverticulosis Easy bruisability Neuropathy Pre-diabetes Sciatica Spinal stenosis Stroke (2016) Tubal Surgical History History of bilateral tubal ligation History of carpal tunnel surgery of right wrist Hx of tonsillectomy Previous section Social History household members: none Smoking Status: Current every day smoker alcohol intake: current Smoking Status: Current every day smoker tobacco type: cigarettes alcohol intake frequency: holidays/special occasions only Substance Use Type: does not use Exam Narrative Exam Narrative: GEN: well nourished, female, alert and oriented x 3, patient appears to be in mild distress. HEENT: Atraumatic, pupils are equal round reactive to light, extraocular movements are intact, nares are clear, TMs are clear with no fluid, there is no conjunctival pallor. Throat is clear without any exudates, erythema, tonsillar enlargement or uvular deviation, patient has significant swelling underneath the chin with induration, loop in place with purulent drainage when pressed. I did leave this in place to keep the area open and draining. Patient is hoarse but states this is her normal baseline no muffled voice, normal speech patient is able to lay back at 30? with no issue, no stridor or difficulty with saliva. HEART: Regular rate and rhythm without murmur, clicks, rubs. Pulses are equal in upper and lower extremities LUNGS:Lungs clear to auscultation, no wheezes, rales, crackles, chest moves symmetrically ABD:bowel sounds normal, soft, non-tender, no guarding, rebound, rigidity, no masses noted, no hepatosplenomegaly :No CVA tenderness MSCL: Non-tender, full range of motion, normal gait NEURO:CN 2-12 intact, sensation normal SKIN: See above Initial Vital Signs Initial Vital Signs: Vital Signs Temperature 98.8 F 12/08/21 17:11 Pulse Rate 88 12/08/21 17:11 Respiratory Rate 20 12/08/21 17:11 Blood Pressure 148/88 H 12/08/21 17:11 Pulse Oximetry 97 12/08/21 17:11 Oxygen Delivery Method 12/08/21 17:11 Course Orders Ordered: ED Orders 12/08/21 20:45 Wound Culture and Gram Stain Stat Discontinued Medications Hydrocodone Bitart/Acetaminophen (Hydrocodone/Acet 5/325 Prepack) 1 bottle MISC SEEINSTR ONE Stop: 12/08/21 21:19 Last Admin: 12/08/21 21:33 Dose: 1 bottle Documented By: RUSTY Dexamethasone (Dexamethasone 10 Mg/Ml Vial) 10 mg PO NOW ONE Stop: 12/08/21 19:54 Last Admin: 12/08/21 20:30 Dose: 10 mg Documented By: RIKKI Sodium Chloride (Normal Saline 0.9%) 1,000 mls @ 1,000 mls/hr IV BOLUS ONE Stop: 12/08/21 20:50 Last Infusion: 12/08/21 21:23 Dose: 0 mls/hr Documented By: Admin: 12/08/21 20:31 Dose: 1,000 mls/hr Documented By: RIKKI Clindamycin Phosphate (Cleocin) 900 mg in 50 mls @ 50 mls/hr IV NOW ONE Stop: 12/08/21 20:51 Last Infusion: 12/08/21 21:23 Dose: 0 mls/hr Documented By: Admin: 12/08/21 20:30 Dose: 50 mls/hr Documented By: RIKKI Ketorolac Tromethamine (Ketorolac 30 Mg/Ml Vial) 15 mg IV NOW ONE Stop: 12/08/21 19:52 Last Admin: 12/08/21 20:30 Dose: 15 mg Documented By: RIKKI Vital Signs Vital signs: Vital Signs - 8 hr 12/08/21 21:27 Temperature 98.5 F Pulse Rate 76 Respiratory Rate 16 Blood Pressure 163/89 H Pulse Oximetry 96 Oxygen Delivery Method Room Air MDM - Skin/Abscess/Foreign Bdy Lab Data Result diagrams: 12/08/21 19:18 12/08/21 19:18 Labs: Lab Results 12/08/21 12/08/21 12/08/21 Range/Units 19:18 19:18 19:18 WBC 10.3 (4.5-11.0) X10^3/uL RBC 3.67 L (4.0-5.2) X10^6/uL Hgb 13.1 (12.0-16.0) g/dL Hct 37.9 (36-46) % MCV 103.4 H (80-100) fL MCH 35.7 H (26-34) PG MCHC 34.6 (30-36) % RDW 14.4 (11.6-14.8) % Plt Count 359 (150-400) X10^3/uL Neut % (Auto) 73.3 (50-75) % Lymph % (Auto) 17.8 L (25-40) % Overton % (Auto) 7.8 (3-14) % Eos % (Auto) 0.5 L (2-4) % Baso % (Auto) 0.6 (0-2) % Neut # (Auto) 7600 H (8371-7581) /uL Lymph # (Auto) 1800 (6501-4381) /uL Overton # (Auto) 800 (0-900) /uL Eos # (Auto) 100 (0-450) /uL Baso # (Auto) 100 (0-100) /uL PT 12.3 (10.1-12.7) SECONDS INR 1.1 (0.9-1.3) APTT 32 (26-36) SECONDS Sodium 136 L (137-145) mmol/L Potassium 3.9 (3.4-5.1) mmol/L Chloride 98 (98-107) mmol/L Carbon Dioxide 27 (22-32) mmol/L BUN 15 (7-17) mg/dL Creatinine 0.70 (0.52-1.04) mg/dL Estimated GFR > 60 (>60) mL/min BUN/Creatinine Ratio 21.4 (6-22) Glucose 87 (80-110) mg/dL Lactate (0.7-2.1) mmol/L Calcium 9.7 (8.4-10.2) mg/dL Total Bilirubin 0.5 (0.2-1.3) mg/dL AST 34 (14-36) IU/L ALT 22 (<35) IU/L Alkaline Phosphatase 89 (38-126) U/L Total Protein 8.2 (6.3-8.2) g/dL Albumin 4.1 (3.5-5.0) g/dL Globulin 4.1 (1.7-4.1) g/dL Albumin/Globulin Ratio 1.0 (1.0-2.8) Lipase 207 (23-300) U/L 12/08/ Range/Units 19:18 WBC (4.5-11.0) X10^3/uL RBC (4.0-5.2) X10^6/uL Hgb (12.0-16.0) g/dL Hct (36-46) % MCV (80-100) fL MCH (26-34) PG MCHC (30-36) % RDW (11.6-14.8) % Plt Count (150-400) X10^3/uL Neut % (Auto) (50-75) % Lymph % (Auto) (25-40) % Overton % (Auto) (3-14) % Eos % (Auto) (2-4) % Baso % (Auto) (0-2) % Neut # (Auto) (2793-3276) /uL Lymph # (Auto) (1143-3107) /uL Overton # (Auto) (0-900) /uL Eos # (Auto) (0-450) /uL Baso # (Auto) (0-100) /uL PT (10.1-12.7) SECONDS INR (0.9-1.3) APTT (26-36) SECONDS Sodium (137-145) mmol/L Potassium (3.4-5.1) mmol/L Chloride (98-107) mmol/L Carbon Dioxide (22-32) mmol/L BUN (7-17) mg/dL Creatinine (0.52-1.04) mg/dL Estimated GFR (>60) mL/min BUN/Creatinine Ratio (6-22) Glucose (80-110) mg/dL Lactate 1.3 (0.7-2.1) mmol/L Calcium (8.4-10.2) mg/dL Total Bilirubin (0.2-1.3) mg/dL AST (14-36) IU/L ALT (<35) IU/L Alkaline Phosphatase (38-126) U/L Total Protein (6.3-8.2) g/dL Albumin (3.5-5.0) g/dL Globulin (1.7-4.1) g/dL Albumin/Globulin Ratio (1.0-2.8) Lipase (23-300) U/L Imaging Data soft tissue neck CT: Radiologist's Impression: [address] [address] [address] Scan Report Signed Patient: Genoveva Burch MR#: [id number] : 1960 Acct:[id number] Age/Sex: 61 / F Date of Service: 12/08/21 Loc: ED Accession Number: [id number] ?? Procedure: CT soft tissue neck w con Ordering Provider: Kori Manley D.O. PROCEDURE:? CT SOFT TISSUE NECK W CON ? INDICATIONS:? abscess under chin. Had I D today outpatient ? TECHNIQUE:? After the administration of intravenous contrast, 3.0 mm axial sections acquired from the sella to the aortic arch.? Additional oblique axial 3.0 mm sections acquired through the pharynx.? 3 mm thick coronal and sagittal reformats were generated.? For radiation dose reduction, the following was used:? automated exposure control.? ? COMPARISON:? Located Within [facility], CT, CT SOFT TISSUE NECK W CON, 11/28/2021, 13:15. ? FINDINGS:? Image quality:? Excellent.? ? Lymph nodes:? No enlarged lymph nodes seen throughout the neck.? ? Vessels:? Visualized vasculature appears patent.? ? Neck spaces:? The oropharynx, nasopharynx, and pharynx demonstrate no mucosal lesions.? The vocal cords, false vocal cords, pyriform sinuses, epiglottis, vallecula, and tongue base all appear normal.? Extramucosal spaces appear unremarkable.? ? Glands:? The parotid and submandibular glands appear normal.? Thyroid gland contains a sub cm cyst or solid mass at the middle 3rd of the right thyroid lobe..? ? Miscellaneous:? Visualized brain and orbits appear normal.? Lung apices appear clear.? Superficial soft tissues appear normal except in the left submental area where inflammatory change can be seen without rim enhancing fluid collection that would suggest abscess formation.? Reportedly earlier today abscess drainage in this area had been performed. ? Bones:? No suspicious bony lesions.? Visualized sinuses and mastoids appear unremarkable. ? ? ? IMPRESSION:? Inflammatory change within the soft tissues of the left anterior submental region, without undrained fluid collection. ? Incidental finding of a 8-9 mm hypodensity within the middle 3rd of the right thyroid lobe which is incompletely evaluated by CT scanning.? Follow-up by dedicated thy roid ultrasound likely is warranted to further characterize this structure. ? Dictated by: Milton Pepper M.D. on 12/08/2021 at 20:43 ? ? Approved by: Milton Pepper M.D. on 12/08/2021 at 20:47?? MDM Narrative Medical decision making narrative: This is a 61-year-old female with abscess on her left underside of her chin with some swelling and induration and obvious purulent drainage with a loop drain in place. I am able to express a small amount here in the department. Patient had I&D at outside urgent care. She does not appear septic, labs are overall reassuring, airway does not appear involved CT soft tissue neck was obtained no airway involvement, abscess appears to be appropriately drained on CT imaging and no impingement or other changes noted. Patient has not been on antibiotics except for a dose of IM Rocephin earlier today and a dose of clinda IV. She was offered observation for night in the hospital but she defers. She is asked return next 24-48 hours for recheck with us or urgent care if she is worsening in any way to return emergently. Return precautions and signs and symptoms to watch for reviewed with her as well as friend at bedside. Discharge Plan Departure Patient Disposition: Home Clinical Impression: Abscess of face Instructions: DI for Skin Abscess Activity Restrictions/Additional Instructions: Your CT today does not show a large fluid collection it appears they have done a good job draining your abscess. I am happy to keep you overnight in the hospital as you have elected to return start oral antibiotics tomorrow. Please return here or the urgent care if your continuing to improve in the next 24-48 hours for recheck and possibly removal of the loop/Drain You can take Dowell 1-2 tablets every 6 hours. Prescription sent to [facility] in [place]. It is recommended that you have dedicated thyroid ultrasound there is possible nodule on your CT. Please return for fevers increasing swelling, drainage that is persisting, increasing redness or spreading redness, changes to your voice, muffled voice, stridor wheezing, or if there are any new changes or any worsening Prescriptions: New clindamycin HCl 300 mg capsule 300 mg PO QID Qty: 40 0RF No Action metformin 500 mg Tablet 500 mg PO QPM bupropion HCl 150 mg Tablet Sustained-Release 12 Hr 300 mg PO BID quetiapine 100 mg Tablet 50 mg PO DAILY PRN (Reason: Sleep) Label Comments: seroquel ferrous sulfate [Iron (ferrous sulfate)] 325 mg (65 mg iron) Tablet 325 mg PO BID gabapentin 300 mg Capsule 1,500 mg PO SEEINSTR Rx Instructions: 600 mg bid, 300mg midday omega-3 acid ethyl esters 1 gram Capsule 1 cap PO DAILY levocetirizine 5 mg Tablet 5 mg PO QPM acetaminophen 325 mg Tablet 650 mg PO Q6HR PRN (Reason: Pain, Mild (1-3)) Qty: 60 0RF hydromorphone 2 mg Tablet 2 mg PO Q3H PRN (Reason: Pain, Severe (7-10)) Qty: 40 0RF docusate sodium 100 mg Capsule 100 mg PO BID Qty: 20 0RF oxycodone 5 mg Tablet 10 mg PO Q3HR PRN (Reason: Pain, Severe (7-10)) Qty: 30 0RF methocarbamol 500 mg Tablet 500 mg PO QID PRN (Reason: Muscle Spasm) Qty: 60 0RF sennosides [senna] 8.6 mg Tablet 17.2 mg PO BEDTIME Qty: 30 0RF nicotine 14 mg/24 hr Patch 24 Hour 14 mg topical DAILY Qty: 28 0RF magnesium hydroxide [Milk of Magnesia] 400 mg/5 mL Suspension 30 ml PO DAILY PRN (Reason: Constipation) Qty: 355 0RF alum-mag hydroxide-simeth [Mag-Al Plus] 200-200-20 mg/5 mL Suspension 30 ml PO QID PRN (Reason: Dyspepsia) Qty: 30 0RF aspirin 81 mg tablet,delayed release (DR/EC) 81 mg PO DAILY Qty: 30 0RF Fleet Enema 19-7 gram/118 mL Enema 29.5 ml SD PRN PRN (Reason: Constipation) Qty: 1197 0RF Referrals: Juventino Coe MD [Primary Care Provider] - Visit Report Forms: Patient Portal/API
--- NOTE | 2021-12-08 19:51 | DI.CT.S_ITS ---
PROCEDURE: CT SOFT TISSUE NECK W CON INDICATIONS: abscess under chin. Had I D today outpatient TECHNIQUE: After the administration of intravenous contrast, 3.0 mm axial sections acquired from the sella to the aortic arch. Additional oblique axial 3.0 mm sections acquired through the pharynx. 3 mm thick coronal and sagittal reformats were generated. For radiation dose reduction, the following was used: automated exposure control. COMPARISON: [facility], CT, CT SOFT TISSUE NECK W CON, 11/28/2021, 13:15. FINDINGS: Image quality: Excellent. Lymph nodes: No enlarged lymph nodes seen throughout the neck. Vessels: Visualized vasculature appears patent. Neck spaces: The oropharynx, nasopharynx, and pharynx demonstrate no mucosal lesions. The vocal cords, false vocal cords, pyriform sinuses, epiglottis, vallecula, and tongue base all appear normal. Extramucosal spaces appear unremarkable. Glands: The parotid and submandibular glands appear normal. Thyroid gland contains a sub cm cyst or solid mass at the middle 3rd of the right thyroid lobe.. Miscellaneous: Visualized brain and orbits appear normal. Lung apices appear clear. Superficial soft tissues appear normal except in the left submental area where inflammatory change can be seen without rim enhancing fluid collection that would suggest abscess formation. Reportedly earlier today abscess drainage in this area had been performed. Bones: No suspicious bony lesions. Visualized sinuses and mastoids appear unremarkable. IMPRESSION: Inflammatory change within the soft tissues of the left anterior submental region, without undrained fluid collection. Incidental finding of a 8-9 mm hypodensity within the middle 3rd of the right thyroid lobe which is incompletely evaluated by CT scanning. Follow-up by dedicated thyroid ultrasound likely is warranted to further characterize this structure. Dictated by: Milton Pepper M.D. on 12/08/2021 at 20:43 Approved by: Milton Pepper M.D. on 12/08/2021 at 20:47
[2021-12-08 20:30] LABS: Add Manual Diff / Slide Review NO; Basophils Absolute Auto 100 /uL (0-100); Basophils Percent Auto 0.6 % (0-2); Eosinophils Absolute Auto 100 /uL (0-450); Eosinophils Percent Auto 0.5 % (2-4); Hematocrit 37.9 % (36-46); Hemoglobin 13.1 g/dL (12.0-16.0); INR 1.1 (0.9-1.3); Lymphocytes Absolute Auto 1800 /uL (1100-4500); Lymphocytes Percent Auto 17.8 % (25-40); Mean Corpuscular HGB Conc 34.6 % (30-36); Mean Corpuscular Hemoglobin 35.7 PG (26-34); Mean Corpuscular Volume 103.4 fL (80-100); Monocytes Absolute Auto 800 /uL (0-900); Monocytes Percent Auto 7.8 % (3-14); Neutrophils Absolute Auto 7600 /uL (1500-7000); Neutrophils Percent Auto 73.3 % (50-75); Platelet Count 359 X10^3/uL (150-400); Prothrombin Time 12.3 SECONDS (10.1-12.7); Red Blood Cell Count 3.67 X10^6/uL (4.0-5.2); Red Cell Distribution Width 14.4 % (11.6-14.8); White Blood Cell Count 10.3 X10^3/uL (4.5-11.0)
[2021-12-08] MEDS: KETOROLAC 30 MG/ML VIAL 15 MG IV (20:30)
[2021-12-08] MEDS: CLINDAMYCIN 900 MG/50 ML PIGGYBACK 50 MG IV (20:30)
[2021-12-08] MEDS: DEXAMETHASONE 10 MG/ML VIAL PO (20:30)
[2021-12-08] MEDS: SODIUM CHLORIDE 0.9% 1,000 ML 1000 ML IV (20:31)
[2021-12-08 20:33] LABS: PTT Partial Thromboplastin Tim 32 SECONDS (26-36)
[2021-12-08 20:36] LABS: Lactate (Lactic Acid) 1.3 mmol/L (0.7-2.1)
[2021-12-08 20:37] LABS: Alanine Aminotransferase 22 IU/L (<35); Albumin 4.1 g/dL (3.5-5.0); Alkaline Phosphatase 89 U/L (38-126); Aspartate Aminotransferase 34 IU/L (14-36); BUN Creatinine Ratio 21.4 (6-22); Bilirubin Total 0.5 mg/dL (0.2-1.3); Blood Urea Nitrogen 15 mg/dL (7-17); Calcium 9.7 mg/dL (8.4-10.2); Carbon Dioxide 27 mmol/L (22-32); Chloride 98 mmol/L (98-107); Estimated Glomerular Filt Rate > 60 mL/min (>60); Globulin 4.1 g/dL (1.7-4.1); Glucose 87 mg/dL (80-110); HEMOLYSIS < 15 (0-50); Lipase 207 U/L (23-300); Potassium 3.9 mmol/L (3.4-5.1); Sodium 136 mmol/L (137-145); Total Protein 8.2 g/dL (6.3-8.2)
[2021-12-08] MEDS: HYDROCODONE/ACET 5/325 PREPACK 1 BOTTLE MISC (21:33)
== END 2021-12-08 21:43 | disposition home or self-care (01) ==
PROVIDERS: Emergency Provider Emergency Medicine; PCP Family Medicine
DX: L02.01 Cutaneous abscess of face (principal)
CPT/HCPCS: 36415; 70491; 80053; 83605; 83690; 85025; 85610; 85730; 87040; 87070; 87075; 87205; 96365; 96375; 99284; J1100; J1885; Q9967

== ENCOUNTER → 2022-01-11 12:08 | Outpatient (CLI) | payer OTHER, MEDICAID, SELFPAY ==
[2021-01-10 20:47] VITALS: BMI 34.1
--- NOTE | 2022-01-11 12:09 | DI.US.S_ITS ---
PROCEDURE: US THYROID INDICATIONS: THYROID MASS TECHNIQUE: Real-time scanning was performed of the thyroid gland, with image documentation. COMPARISON: [facility], CT, CT SOFT TISSUE NECK W CON, 12/08/2021, 20:08. FINDINGS: Right: Thyroid lobe measures 4.1 x 1.6 x 1.6 cm, and is heterogeneous in echotexture. Left: Thyroid lobe measures 2.9 x 1.1 x 1.4 cm, and is heterogeneous in echotexture. Isthmus: 2 mm thick. Nodule number: 1 Location: Left lobe mid Size: 0.7 x 0.4 x 0.7 cm. Composition: Predominantly solid Echogenicity: Isoechoic Shape: wider than tall. Margins: Smooth Echogenic foci: None Total points: 3 ACR TI-RADS category: 3 Nodule number: 2 Location: Right lobe mid-inferior Size: 1.5 x 1.0 x 0.9 cm. Composition: Predominantly solid Echogenicity: Hypoechoic Shape: wider than tall. Margins: Smooth Echogenic foci: None Total points: 4 ACR TI-RADS category: 4 IMPRESSION: A 1.5 cm nodule at the right mid-inferior lobe of the thyroid gland meets TI-RADS criteria for FNA recommendation. ACR TI-RADS definitions and recommendations: TI-RADS 1 (benign): 0 points. FNA not needed. TI-RADS 2 (not suspicious): 2 points. FNA not needed. TI-RADS 3 (mildly suspicious): 3 points. * FNA if 2.5 cm or larger, follow up if 1.5 cm or larger (at 1, 3, and 5 years). TI-RADS 4 (moderately suspicious): 4-6 points. * FNA if 1.5 cm or larger, follow up if 1 cm or larger (at 1, 2, 3, and 5 years). TI-RADS 5 (highly suspicious): 7 points or more. * FNA if 1 cm or larger, follow up if 0.5 cm or larger (every year for 5 years). Dictated by: Scott Dahl M.D. on 01/11/2022 at 14:58 Approved by: Scott Dahl M.D. on 01/11/2022 at 15:06
== END ==
PROVIDERS: PCP Family Medicine; Referring Provider Family Medicine; Visit Provider Family Medicine
DX: E04.2 Nontoxic multinodular goiter (principal)
CPT/HCPCS: 76536

== ENCOUNTER 2022-04-19 11:51 | Emergency (ER) | payer OTHER, MEDICAID, SELFPAY ==
[2021-01-10 20:47] VITALS: BMI 34.1
[2022-04-19 12:33] VITALS: BP 128/75; PULSE 99; RESP 16; TEMP 36.6; O2SAT 95; BMI 31.3
--- NOTE | 2022-04-19 13:39 | PC.NURSE ---
Pt checked herself into the ER and in for a radiology procedure at the same time. Pt was called to be put in an ER room but it happens that she is in with radiology from 1300 to approx 1350. 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
--- NOTE | 2022-04-19 14:44 | ED.RECABL ---
HPI - Recheck/Abnormal Lab/Rx <Thomas MosqueraLAXMI edmond - Last Filed: 04/19/22 14:52> General Chief Complaint: Recheck/Abnormal Lab/Rx Stated Complaint: need to have stapels removed Time Seen by Provider: 04/19/22 14:21 Source: patient Mode of arrival: Ambulatory History of Present Illness HPI narrative: 61-year-old female, daily smoker, presents to the emergency department for staple removal from her scalp. Patient states that she fell, secondary to right leg numbness, that resulted in a scalp laceration. Patient reports a history of L-spine fusion x3 in January 2021. Patient reports that symptoms have gradually worsened and was told 2 months ago by the neurosurgeon that she had too many issues for him to address and recommended she be seen by a different specialist in [facility]. Patient is working with her family doctor to get this referral. Patient also endorses a rash along her groin that was not felt but noticed by the healthcare team that put in the carolyn. Related Data Home Medications Medication Instructions Recorded Confirmed bupropion HCl 150 mg tablet,12 hr 300 mg PO BID 01/01/21 01/10/21 sustained-release ferrous sulfate 325 mg (65 mg 325 mg PO BID 01/01/21 01/10/21 iron) tablet (Iron (ferrous sulfate)) gabapentin 300 mg capsule 1,500 mg PO SEEINSTR 01/01/21 01/10/21 levocetirizine 5 mg tablet 5 mg PO QPM 01/01/21 01/10/21 metformin 500 mg tablet 500 mg PO QPM 01/01/21 01/10/21 omega-3 acid ethyl esters 1 gram 1 cap PO DAILY 01/01/21 01/10/21 capsule quetiapine 100 mg tablet 50 mg PO DAILY PRN Sleep 01/01/21 01/10/21 Previous Rx's Medication Instructions Recorded acetaminophen 325 mg tablet 650 mg PO Q6HR PRN Pain, Mild 01/13/21 (1-3) #60 tabs docusate sodium 100 mg capsule 100 mg PO BID #20 caps 01/13/21 hydromorphone 2 mg tablet 2 mg PO Q3H PRN Pain, Severe 01/13/21 (7-10) #40 tabs oxycodone 5 mg tablet 10 mg PO Q3HR PRN Pain, Severe 01/13/21 (7-10) #30 tabs aluminum-mag hydroxide-simethicone 30 ml PO QID PRN Dyspepsia #30 mL 01/15/21 200 mg-200 mg-20 mg/5 mL oral susp (Mag-Al Plus) aspirin 81 mg tablet,delayed 81 mg PO DAILY #30 tabs 01/15/21 release magnesium hydroxide 400 mg/5 mL 30 ml PO DAILY PRN Constipation 01/15/21 oral suspension (Milk of Magnesia) #355 mL methocarbamol 500 mg tablet 500 mg PO QID PRN Muscle Spasm #60 01/15/21 tabs nicotine 14 mg/24 hr daily 14 mg topical DAILY #28 ea 01/15/21 transdermal patch sennosides 8.6 mg tablet (senna) 17.2 mg PO BEDTIME #30 tabs 01/15/21 sodium phosphates 19 gram-7 29.5 ml WV PRN PRN Constipation 01/15/21 gram/118 mL enema (Fleet Enema) #1,197 mL clindamycin HCl 300 mg capsule 300 mg PO QID #40 caps 12/08/21 ketoconazole 2 % topical cream 1 applic topical DAILY #60 grams 04/19/22 Allergies Allergy/AdvReac Type Severity Reaction Status Date / Time No Known Drug Allergies Allergy Verified 04/19/22 12:38 Review of Systems <LAXMI Valerio - Last Filed: 04/19/22 14:52> Review of Systems Narrative: Narrative: See HPI. GENERAL: Denies chills, fatigue, fever, sweats. HEENT: Denies sinus pain, ear pain, sore throat, difficulty swallowing, dizziness. RESPIRATORY: Denies dyspnea, cough, wheezing, sputum. CARDIOVASCULAR: Denies chest pain, palpitations, edema. GASTROINTESTINAL: Denies nausea, vomiting, abdominal pain, diarrhea, constipation. MSK: Denies joint pain, or bony pain. SKIN: Endorses red and irritating rash along folds of bilateral groins. NEUROLOGIC: Denies weakness, dizziness, headache, confusion. Endorses weakness and numbness of right leg. PSYCHIATRIC: No concerning psychosocial issues. Patient History <LAXMI Valerio - Last Filed: 04/19/22 14:52> Medical History Arthritis Diverticulosis Easy bruisability Neuropathy Pre-diabetes Sciatica Spinal stenosis Stroke (2016) Tubal Surgical History History of bilateral tubal ligation History of carpal tunnel surgery of right wrist Hx of tonsillectomy Previous section Social History household members: none Smoking Status: Current every day smoker alcohol intake: current Smoking Status: Current every day smoker tobacco type: cigarettes alcohol intake frequency: holidays/special occasions only Substance Use Type: does not use Exam <LAXMI Valerio - Last Filed: 04/19/22 14:52> Narrative Exam Narrative: Exam Narrative: GENERAL: This is a well-nourished, well-developed patient, in no acute distress HEAD: Normocephalic. Four carolyn removed without difficulty and dressed with antibiotic ointment. ENT: Airway patent. RESPIRATORY: Respiratory rate and effort are normal. MSK: Moves all extremities. Normal range of motion, no clubbing or edema. Neurovascularly intact. NEURO: A&O x 3. SKIN: Erythematous rash along bilateral folds of groin are consistent with intertrigo. Initial Vital Signs Initial Vital Signs: Vital Signs Temperature 97.8 F 04/19/22 12:33 Pulse Rate 99 H 04/19/22 12:33 Respiratory Rate 16 04/19/22 12:33 Blood Pressure 128/75 04/19/22 12:33 Pulse Oximetry 95 04/19/22 12:33 Oxygen Delivery Method Room Air 04/19/22 12:33 Reviewed <Jenni Murguia DO - Last Filed: 04/21/22 21:11> Initial Vital Signs Initial Vital Signs: Vital Signs Temperature 97.8 F 04/19/22 12:33 Pulse Rate 99 H 04/19/22 12:33 Respiratory Rate 16 04/19/22 12:33 Blood Pressure 128/75 04/19/22 12:33 Pulse Oximetry 95 04/19/22 12:33 Oxygen Delivery Method Room Air 04/19/22 12:33 Course <LAXMI Valerio - Last Filed: 04/19/22 14:52> Vital Signs Vital signs: Vital Signs - 8 hr 04/19/22 12:33 Temperature 97.8 F Pulse Rate 99 H Respiratory Rate 16 Blood Pressure 128/75 Pulse Oximetry 95 Oxygen Delivery Method Room Air <Jenni DO Shantal - Last Filed: 04/21/22 21:11> Vital Signs Vital signs: Vital Signs - 8 hr 04/19/22 12:33 Temperature 97.8 F Pulse Rate 99 H Respiratory Rate 16 Blood Pressure 128/75 Pulse Oximetry 95 Oxygen Delivery Method Room Air MDM - Recheck/Abnormal Lab/Rx <LAXMI Valerio - Last Filed: 04/19/22 14:52> Differential Diagnosis Differential diagnosis: Likely encounter for removal of sutures and other (Intertrigo) MDM Narrative Medical decision making narrative: 61-year-old female presents to the emergency department for staple removal from her scalp and groin rash. Centereach removed without difficulty, and patient tolerating procedure well. Groin rash is consistent with intertrigo. Recommended air dry and zinc oxide for barrier. Will treat with ketoconazole cream. Instructed patient to follow up with her family doctor if symptoms persist or worsen. Patient verbalized understanding and was agreeable with course of action. Discharge Plan Departure Patient Disposition: Home Clinical Impression: Encounter for removal of carolyn, Candidal intertrigo Instructions: DI for Suture Removal, DI for Intertrigo Activity Restrictions/Additional Instructions: *You have been diagnosed with intertrigo of the groin. We were able to remove the 4 carolyn without any difficulty. Please apply topical antibiotic ointment as needed until the scab falls off. For the intertrigo, I recommend the use warm soap and water to clean the affected area, allow to air dry, or use a behavioral sciences department chair on a cold setting, as much as possible to dry out the area. You may apply zinc oxide as a topical barrier cream. I will prescribe ketoconazole cream that you should apply once daily for up to 2 weeks. Please follow-up your family doctor if symptoms persist or worsen. *What to do: *Please continue to take your regular medications as directed. [x ] New medication prescriptions sent to your pharmacy: [[facility] in [place]] [ ] New medication written as a paper prescription [ ] No new medications given *Please follow up with your primary care provider in 2-3 days, call for an appointment. Let them know you were seen in the Emergency Department and that we ask that you be seen in follow up. We will electronically transmit a record of today's note if your PCP is in our system *If you do not have a primary care provider please contact the [facility] Resource line at [phone]. They will ask some questions about your medical history and help get you set up with a doctor in the community. ? Return to ER if you should have any new, worsening or concerning symptoms, such as worsening pain, severe headache, confusion, chest pain, difficulty breathing, fever greater than 101 F, shaking chills, persistent vomiting to the point that you cannot drink fluids, or other new or worsening symptoms. Prescriptions: New ketoconazole 2 % cream 1 applic topical DAILY Qty: 60 0RF Rx Instructions: Apply cream to the affected areas of groin for up to 2 weeks. No Action clindamycin HCl 300 mg capsule 300 mg PO QID Qty: 40 0RF metformin 500 mg Tablet 500 mg PO QPM bupropion HCl 150 mg Tablet Sustained-Release 12 Hr 300 mg PO BID quetiapine 100 mg Tablet 50 mg PO DAILY PRN (Reason: Sleep) Patient Comments: seroquel ferrous sulfate [Iron (ferrous sulfate)] 325 mg (65 mg iron) Tablet 325 mg PO BID gabapentin 300 mg Capsule 1,500 mg PO SEEINSTR Rx Instructions: 600 mg bid, 300mg midday omega-3 acid ethyl esters 1 gram Capsule 1 cap PO DAILY levocetirizine 5 mg Tablet 5 mg PO QPM acetaminophen 325 mg Tablet 650 mg PO Q6HR PRN (Reason: Pain, Mild (1-3)) Qty: 60 0RF hydromorphone 2 mg Tablet 2 mg PO Q3H PRN (Reason: Pain, Severe (7-10)) Qty: 40 0RF docusate sodium 100 mg Capsule 100 mg PO BID Qty: 20 0RF oxycodone 5 mg Tablet 10 mg PO Q3HR PRN (Reason: Pain, Severe (7-10)) Qty: 30 0RF methocarbamol 500 mg Tablet 500 mg PO QID PRN (Reason: Muscle Spasm) Qty: 60 0RF sennosides [senna] 8.6 mg Tablet 17.2 mg PO BEDTIME Qty: 30 0RF nicotine 14 mg/24 hr Patch 24 Hour 14 mg topical DAILY Qty: 28 0RF magnesium hydroxide [Milk of Magnesia] 400 mg/5 mL Suspension 30 ml PO DAILY PRN (Reason: Constipation) Qty: 355 0RF alum-mag hydroxide-simeth [Mag-Al Plus] 200-200-20 mg/5 mL Suspension 30 ml PO QID PRN (Reason: Dyspepsia) Qty: 30 0RF aspirin 81 mg tablet,delayed release (DR/EC) 81 mg PO DAILY Qty: 30 0RF Fleet Enema 19-7 gram/118 mL Enema 29.5 ml WV PRN PRN (Reason: Constipation) Qty: 1197 0RF Referrals: Juventino Coe MD [Primary Care Provider] - Stand Alone Forms: Patient Portal/API <Jenni Murguia DO - Last Filed: 04/21/22 21:11> Cosign ED Attending Cosignature Attestation: I was immediately available in the department for consultation. Documentation has been reviewed.
--- NOTE | 2022-04-19 15:18 | PC.NURSE ---
4 carolyn to the posterior scalp look c/d/i. Appears to be healing well
== END 2022-04-19 15:00 | disposition home or self-care (01) ==
PROVIDERS: Emergency Provider Registered Nurse; PCP Family Medicine
DX: Z48.02 Encounter for removal of sutures (principal); E04.1 Nontoxic single thyroid nodule
CPT/HCPCS: 10005; 99281

== ENCOUNTER → 2022-04-19 12:50 | Outpatient (CLI) | payer OTHER, MEDICAID, SELFPAY ==
[2021-01-10 20:47] VITALS: BMI 34.1
--- NOTE | 2022-04-19 | PATH_ITS ---
Note [facility] Accession Number: [id number] TESTS RESULT FLAG UNITS REF RANGE LAB Clinician Provided Cytology Information No. of containers..02 Previously Prepared Cytology Slide 35 Unknown Storage/container code(s) Source: RIGHT INFERIOR THYROID NODULE DIAGNOSIS: RIGHT INFERIOR THYROID NODULE INCONCLUSIVE. BETHESDA CATEGORY III. ATYPIA OF UNDETERMINED SIGNIFICANCE. COMMENT: Aspirate contains few clusters with cytologic atypia consisting of mild nuclear enlargement, overlap, and irregular membranes, in a background of minimally cellular background with a mixture of macro- and microfollicular groups, colloid, and cyst content. No definite papillary architecture identidied; no definite inclusions identified. This case was reviewed by Dr. Zamora (cytopathologist) who concurs with the diagnosis of AUS. Pathologist ICD10: R89.6 Signed out by: Marsha Sheth MD, Pathologist NPI- [id number] Performed by: Rinku Jernigan, Supervisor [employer] ([facility]) Gross description: 30 CC, RED, CLEAR RECIEVED: IN CYTOLYT WITH 6 ALCOHOL FIXED AND 6 QUICK STAINED SLIDES ALSO 1 RNA VIAL WAS RECEIVED.VO /VDU 04/22/2022 0916 Local FLAG LEGEND: L-Low Normal,H-High Normal,LL-Alert Low,HH-Alert High <-Panic Low,>-Panic High,A-Abnormal,AA-Critical Abnormal Performed at: 01 =Z [facility] [address] [place] [address] [address], [place] [address] Massimo Valencia MD, Performed at: 01 [facility] [address] [place] [address] [address] [facility], [place], [place] [id number] MD Massimo Valencia MD Phone: [phone]
--- NOTE | 2022-04-19 | DI.US.S_ITS ---
PROCEDURE: US FINE NEEDLE ASPIRATION INDICATIONS: THYROID NODULE TECHNIQUE: The indications, alternatives, benefits, risks, and complications of the procedure were explained to the patient. Written informed consent was obtained and placed in the chart. The area of interest was examined sonographically and a site was chosen for ultrasound guided percutaneous sampling. The skin was prepared and draped in the usual fashion, and anesthetized with 1% lidocaine infiltrated from the skin down to the lesion. Multiple passes were then performed, with contents emptied into an appropriate pathology specimen container. A bandage was applied to the area of access at completion of the study. COMPARISON: None. FINDINGS: Location(s) of lesion(s) sampled: Right mid to inferior pole [place]: 25 gauge hypodermic needles. Number of passes: 6 Medications: 1% lidocaine for local anaesthesia. Complications: None. IMPRESSION: Successful ultrasound-guided right thyroid nodule fine needle aspiration, with cytology results pending. Dictated by: Marcellus Castaneda M.D. on 04/19/2022 at 14:17 Approved by: Marcellus Castaneda M.D. on 04/19/2022 at 14:17
== END ==
PROVIDERS: PCP Family Medicine; Referring Provider Family Medicine; Visit Provider Family Medicine
DX: E04.1 Nontoxic single thyroid nodule (principal)
CPT/HCPCS: 10005